=== PATIENT | male | born 1935 | race African-American/Black ===

== ENCOUNTER → 2018-11-01 | Day surgery (SDC) | payer OTHER ==
[2018-10-31 10:47] LABS: BASOPHILS % 0.6 % (0.0-1.0); EOSINOPHILS # (AUTO) 0.3 (0.0-0.4); EOSINOPHILS % 3.9 % (0.0-6.0); HEMATOCRIT 39.9 % (38.2-49.6); HEMOGLOBIN 12.2 g/dL (14.0-18.0); LYMPHOCYTES # (AUTO) 1.4 (1.0-3.2); LYMPHOCYTES % 22.2 % (18.0-39.1); MEAN CORPUSCULAR HEMOGLOBIN 23.8 pg (28-32); MEAN CORPUSCULAR HGB CONC 30.6 g/dL (31-35); MEAN CORPUSCULAR VOLUME 77.9 fL (81-99); MONOCYTES # (AUTO) 0.5 (0.2-0.8); NEUTROPHILS # (AUTO) 4.2 (2.1-6.9); NEUTROPHILS % 64.8 % (38.7-80.0); PLATELET COUNT 176 x10e3/uL (140-360); RED BLOOD COUNT 5.12 x10e6/uL (4.3-5.7); RED CELL DISTRIBUTION WIDTH 15.6 % (11.7-14.4)
[2018-10-31 11:05] LABS: ALBUMIN 3.5 g/dL (3.5-5.0); ALBUMIN/GLOBULIN RATIO 1.4 (0.8-2.0); CALCIUM 9.4 mg/dL (8.4-10.2); CREATININE, SERUM 1.46 mg/dL (0.72-1.25)
--- NOTE | 2018-10-31 11:05 | Diagnostic Imaging Report ---
EXAMINATION: PA and lateral views of the chest. COMPARISON: None CLINICAL HISTORY: Preoperative study for port placement DISCUSSION: The lungs are well-inflated. No focal airspace consolidation, pleural effusion, or pneumothorax. Tortuous thoracic aorta with atherosclerotic calcification. Normal heart size. No overt pulmonary edema. No acute osseous abnormality. IMPRESSION: No acute cardiopulmonary abnormalities. Signed by: Dr. Pierce Saldivar M.D. on 10/31/2018 11:02 AM
[~2018-11-01] MED LIST: ADVAIR 250/50; ALLEGRA ALLERG180 MG PO; BESIVANCE5 ML OS; BUPIVACAINE 0.25% 30ML SDV INJ ONE; BUPIVACAINE 0.5%/EPI 30 ML SDV INJ ONE; CLONAZEPAM0.5 MG PO; DEXAMETHASONE SOD PHOS INJ 4 MG/ML VIAL ONE; ENALAPRIL MALE2.5 MG; EPHEDRINE SULFATE INJ 50 MG/10 ML SYR ONE; FENTANYL CITRATE/PF 100MCG/2 ML INJ ONE; FLOMAX0.4 MG PO; FUROSEMIDE40 MG PO; HEPARIN SOD (PORCINE) 5,000 UNIT/ML VIAL ONE; ILEVRO OS; INCRUSE ELLIPTA INH; IOPAMIDOL 610MG/1ML 300 MG/ML VIAL IV ONE; JANUMET 50-1,01 EACH; KLOR-CON M2020 MEQ PO; KLOR-CON20 MEQ; LABETALOL HCL 20 MG/4 ML SYRINGE IV ONE; LABETALOL HCL200 MG; LIDOCAINE HCL 1% LOCAL INJ 20 ML VIAL ONE; LIDOCAINE HCL 2% LOCAL INJ 5 ML SDV VIAL INJ ONE; LOSARTAN POTASS25 MG PO; MECLIZINE HCL25 MG PO; MONTELUKAST SOD10 MG PO; ONDANSETRON HCL INJ 2MG/ML 2ML 2 MG/ML VIAL ONE; ONGLYZA5 MG PO; PANTOPRAZOLE SO40 MG PO; PLAVIX75 MG PO; PREDNISONE10 MG PO; PROPOFOL IV EMULSION 10 MG/ML 20 ML VIAL ONE; PROVENTIL HFA6.7 GM INH; SEVOFLURANE INHAL SOLN 250 ML PEN BTL ONE; SIMVASTATIN10 MG PO; SODIUM CHLORIDE 0.9% 500ML 500 ML ONE; SPIRIVA18 MCG INH; SYMBICORT 16010.2 GM INH; TORSEMIDE10 MG; ULTRAM50 MG PO; ZYTIGA250 MG PO
--- OUTSIDE RECORDS SUMMARY | 2018-11-01 05:31 | XMS REPORT | CCD ---
Author Author Auto Generated Organization [facility] Address Unknown Phone Unavailable Care Team Providers [employer] Helper Name Role Phone Diaz Elias RP Allergies, Adverse Reactions, Alerts Substance Reaction Status NKDA Active
--- OUTSIDE RECORDS SUMMARY | 2018-11-01 05:31 | XMS REPORT | Continuity of Care Document ---
Author Author [facility] Interface Address Unknown Phone Unavailable Problems Problem Status Onset Date Classification Date Reported Comments Source DYSPNEA Active 07/31/2018 [facility] Discharge Diagnosis: Acute exacerbation of COPD with asthma 12/24/2016 12/27/2016 [facility] SOB Active 12/24/2016 [facility] Discharge Diagnosis: Asthma 12/04/2016 12/07/2016 [facility] Discharge Diagnosis: Bronchitis 12/04/2016 12/07/2016 [facility] JARED DEVINE MD #[phone] FAX#[phone] Active 01/26/2016 [facility] PULMONARY NODULE Active 08/02/2015 [facility] Discharge Diagnosis: Benign paroxysmal positional vertigo 02/24/2015 02/27/2015 [facility] 1.[address] IN MEENU Active 12/28/2014 [facility] DYSPNEA 786.09 Active 06/26/2014 [facility] ABDOMINAL PAIN Active 05/22/2014 [facility] CHEST PAIN Active 05/22/2014 [facility] Chronic anemia<sup>1</sup> Active 02/03/2013 Problem 12/27/2016 Data migrated from [employer] on 02/20/15. [facility] Malignant tumor of sigmoid colon<sup>3</sup> Active 02/03/2013 Problem 12/27/2016 Data migrated from [employer] on 02/20/15. [place],[facility] Polyp of large intestine<sup>5</sup> Active 02/03/2013 Problem 12/27/2016 Data migrated from [employer] on 02/20/15. [facility] 153.3=CANCER OF COLON, SIGMOID Active 01/21/2013 [facility] UNK Active 01/21/2013 [facility] [place] - Myocardial infarction<sup>2</sup> Resolved 09/24/1987 Problem 01/01/2015 2 Approx [facility] [place] - Myocardial infarction<sup>4</sup> Resolved 09/24/1987 Problem 12/27/2016 Approx [facility] Inflammatory polyps of colon<sup>1</sup> Active Problem 01/01/2015 1Signmoid [facility] Right sided weakness<sup>3</sup> Resolved Problem 01/01/2015 3r/t stroke [facility] Stroke<sup>4</sup> Resolved Problem 01/01/2015 4right leg affected. [facility] Asthma Active Problem 12/27/2016 [facility] Benign hypertension Active Problem 12/27/2016 [facility] Cancer of prostate Resolved Problem 12/27/2016 [facility] Diabetes Active Problem 12/27/2016 [facility] Inflammatory polyps of colon<sup>2</sup> Active Problem 12/27/2016 Signmoid [facility] Right sided weakness<sup>6</sup> Resolved Problem 12/27/2016 r/t stroke [facility] Sleep apnea Active Problem 12/27/2016 [facility] SOB - Shortness of breath Active Problem 12/27/2016 [facility] Stroke<sup>7</sup> Resolved Problem 12/27/2016 right leg affected. [facility] CHEST PAIN NOS Active [facility] MAL VERNON SIGMOID COLON Active [facility] DIZZINESS Active [facility] SOLITARY PULMONARY NODULE Active [facility] DIZZINESS Active [facility] Medications Medication Details Route Status Patient Instructions Ordering Provider Order Date Source predniSONE 20 mg oral tablet 40 mg=2 tab, PO, Daily, Take 2 tablets for 40 mg dose, X 5 day, # 10 tab, 0 Refill(s) Active 12/24/2016 [facility] Albuterol 0.833 MG/ML / Ipratropium [place] 0.167 MG/ML Inhalant Solution 9 mL, Route: NEB, Drug Form: SOLN, Dosing Weight 110.455, kg, ONCE, STAT, Start date: 12/24/16 6:05:00 CDT, Stop date: 12/24/16 6:05:00 CDTNotes: (Same as: Duoneb) Inactive 12/24/2016 [facility] methylPREDNISolone SODium SUCCinate 125 mg, Route: IVP, ONCE, Dosing Weight 110.455, kg, Priority: STAT, Start date: 12/24/16 6:05:00 CDT, Stop date: 12/24/16 6:05:00 CDT Inactive 12/24/2016 [facility] Saline Flush 0.9% 10 mL, Route: IVP, Drug Form: INJ, Dosing Weight 110.455, kg, PRN, PRN Line Flush, Start date: 12/24/16 6:05:00 CDT, Duration: 30 day, Stop date: 01/23/17 6:04:00 CDTNotes: (Same as: BD Posiflush) Inactive 12/24/2016 [facility] Prednisone 50 MG Oral Tablet 50 mg=1 tab, PO, Daily, X 5 day, # 5 tab, 0 Refill(s) Active 12/04/2016 [facility] azithromycin 500 mg oral tablet 500 mg=1 tab, PO, Daily, X 5 day, # 5 tab, 0 Refill(s) Active 12/04/2016 [facility] azithromycin 500 mg oral tablet 500 mg, Route: PO, Drug form: TAB, ONCE, Dosing Weight 110.455, kg, Start date: 12/04/16 11:31:00 CDT, Stop date: 12/04/16 11:31:00 CDT Inactive 12/04/2016 [facility] methylPREDNISolone SODium SUCCinate 125 mg, 2 mL, Route: IVP, Drug form: INJ, ONCE, Dosing Weight 110.455, kg, Priority: STAT, Start date: 12/04/16 10:31:00 CDT, Stop date: 12/04/16 10:31:00 CDTNotes: (Same as:Solu-MEDROL, A-Methapred) Inactive 12/04/2016 [facility] Magnesium Sulfate 2 gm, 50 mL, Route: IVPB, Drug form: INJ, ONCE, Dosing Weight 110.455, kg, Priority: STAT, Start date: 12/04/16 10:31:00 CDT, Stop date: 12/04/16 10:31:00 CDTNotes: WASTE: F/P - Sink; E - Municipal Trash Bin Inactive 12/04/2016 [facility] Albuterol 0.833 MG/ML / Ipratropium [place] 0.167 MG/ML Inhalant Solution 9 mL, Route: NEB, Drug Form: SOLN, Dosing Weight 110.455, kg, ONCE, STAT, Start date: 12/04/16 10:31:00 CDT, Stop date: 12/04/16 10:31:00 CDTNotes: (Same as: Duoneb) Inactive 12/04/2016 [facility] Saline Flush 0.9% 10 mL, Route: IVP, Drug Form: INJ, Dosing Weight 110.455, kg, PRN, PRN Line Flush, Start date: 12/04/16 10:31:00 CDT, Duration: 30 day, Stop date: 01/03/17 10:30:00 CDTNotes: preservative free. Inactive 12/04/2016 [facility] Albuterol 0.833 MG/ML / Ipratropium [place] 0.167 MG/ML Inhalant Solution 9 mL, Route: NEB, Dosing Weight 110.455, kg, ONCE, STAT, Start date: 12/04/16 10:28:00 CDT, Stop date: 12/04/16 10:28:00 CDT Inactive 12/04/2016 [facility] Meclizine Hydrochloride 25 MG Oral Tablet [Antivert] 25 mg=1 tab, PO, TID, PRN Dizziness, X 10 day, # 30 tab, 0 Refill(s) Active 02/24/2015 [facility] Antivert 50 mg, 2 tab, Route: PO, Drug form: TAB, ONCE, Dosing Weight 109.091, kg, Priority: STAT, Start date: 02/24/15 10:27:00, Stop date: 02/24/15 10:27:00Notes: (Same as: Antivert) Inactive 02/24/2015 [facility] Metoclopramide 10 mg, 2 mL, Route: IVP, Drug form: INJ, ONCE, Dosing Weight 109.091, kg, Priority: STAT, Start date: 02/24/15 10:27:00, Stop date: 02/24/15 10:27:00Notes: (Same as: Reglan) Inactive 02/24/2015 [facility] Diphenhydramine 25 mg, 0.5 mL, Route: IVP, Drug form: INJ, ONCE, Dosing Weight 109.091, kg, Priority: STAT, Start date: 02/24/15 10:27:00, Stop date: 02/24/15 10:27:00Notes: (Same as: Benadryl) Inactive 02/24/2015 [facility] Claritin 10 mg, 1 tab, Route: PO, Drug form: TAB, Daily, Start date: 05/23/14 9:00:00, Duration: 30 day, Stop date: 06/21/14 9:00:00Notes: 1 hr before meals (Same as: Claritin) Inactive 05/23/2014 [facility] Glucophage 500 mg, 1 tab, Route: PO, Drug form: TAB, Daily, Start date: 05/23/14 9:00:00, Duration: 30 day, Stop date: 06/21/14 9:00:00Notes: (Same as: Glucophage) Take with meal Inactive 05/23/2014 [facility] Glipizide 2.5 MG / Metformin hydrochloride 500 MG Oral Tablet 1 tab, Route: PO, Dosing Weight 110, kg, Daily, Start date: 05/23/14 9:00:00, Duration: 30 day, Stop date: 06/21/14 9:00:00 No Longer Active 05/23/2014 [facility] Glucotrol 2.5 mg, 0.5 tab, Route: PO, Drug form: TAB, Daily, Start date: 05/23/14 9:00:00, Duration: 30 day, Stop date: 06/21/14 9:00:00Notes: (Same as: Glucotrol) 30 min before meals. Inactive 05/23/2014 [facility] tamsulosin 0.4 mg, 1 cap, Route: PO, Drug form: CAP, Daily, Dosing Weight 110, kg, Start date: 05/23/14 9:00:00, Duration: 30 day, Stop date: 06/21/14 9:00:00Notes: (Same As: Flomax) "Do Not Crush" Inactive 05/23/2014 [facility] Advair Diskus 250 mcg-50 mcg inhalation powder 1 puff, Route: INHALATION, Drug Form: AERO, Dosing Weight 110, kg, BID, Start date: 05/23/14 9:00:00, Duration: 30 day, Stop date: 06/21/14 17:00:00 No Longer Active 05/23/2014 [facility] Genevieve 180 mg, Route: PO, Drug form: TAB, Daily, Dosing Weight 110, kg, Start date: 05/23/14 9:00:00, Duration: 30 day, Stop date: 06/21/14 9:00:00 No Longer Active 05/23/2014 [facility] Plavix 75 mg, 1 tab, Route: PO, Drug form: TAB, Daily, Dosing Weight 110, kg, Start date: 05/23/14 9:00:00, Duration: 30 day, Stop date: 06/21/14 9:00:00Notes: (Same As: Plavix) Inactive 05/23/2014 [facility] budesonide-formoterol 160 mcg-4.5 mcg/inh inhalation aerosol with adapter 2 inhalation, Route: INHALATION, Drug Form: AERO/A, Q12H, Start date: 05/22/14 21:00:00, Duration: 30 day, Stop date: 06/21/14 9:00:00Notes: (Same as: Symbicort) No Longer Active 05/23/2014 [facility] Enoxaparin 30 mg, 0.3 mL, Route: SUB-Q, Drug form: INJ, [id number], Dosing Weight 110, kg, Start date: 05/22/14 21:00:00, Duration: 30 day, Stop date: 06/20/14 21:00:00Notes: (Same as: Lovenox) No Longer Active 05/23/2014 [facility] Simvastatin 10 mg, 1 tab, Route: PO, Drug form: TAB, Bedtime, Dosing Weight 110, kg, Start date: 05/22/14 21:00:00, Duration: 30 day, Stop date: 06/20/14 21:00:00Notes: (Same as: Zocor) No Longer Active 05/23/2014 [facility] Saline Flush 0.9% 5 ml, Route: IVP, Drug Form: INJ, Dosing Weight 110, kg, Q12H, Start date: 05/22/14 21:00:00, Duration: 30 day, Stop date: 06/21/14 9:00:00Notes: (Same as: BD Posiflush) No Longer Active 05/23/2014 [facility] Restoril 7.5 mg, 1 cap, Route: PO, Drug form: CAP, Bedtime, PRN Insomnia, Start date: 05/22/14 18:33:00, Duration: 30 day, Stop date: 06/21/14 18:32:00Notes: (Same As: Restoril) No Longer Active 05/22/2014 [facility] Tylenol 650 mg, 2 tab, Route: PO, Drug form: TAB, Q4H, Dosing Weight 110, kg, PRN Pain Score 1-3, Start date: 05/22/14 18:29:00, Duration: 30 day, Stop date: 06/21/14 18:28:00Notes: Do not exceed 4 gm/day. (Same as: Tylenol) No Longer Active 05/22/2014 [facility] Ambien 5 mg, Route: PO, Bedtime, Dosing Weight 110, kg, PRN Insomnia, Start date: 05/22/14 18:29:00, Duration: 30 day, Stop date: 06/21/14 18:28:00 Inactive 05/22/2014 [facility] NS 1,000 mL 1,000 mL, Rate: 100 ml/hr, Infuse over: 10 hr, Route: IV, Dosing Weight 110 kg, Total Volume: 1,000, Start date: 05/22/14 18:26:00, Duration: 30 day, Stop date: 06/21/14 18:25:00 No Longer Active 05/22/2014 [facility] Saline Flush 0.9% 5 ml, Route: IVP, Drug Form: INJ, Dosing Weight 110, kg, PRN, PRN Line Flush, Start date: 05/22/14 15:27:00, Duration: 30 day, Stop date: 06/21/14 15:26:00Notes: (Same as: BD Posiflush) No Longer Active 05/22/2014 [facility] Nitroglycerin 0.4 mg, 1 tab, Route: SL, Drug form: TAB, Q5Min, Dosing Weight 110, kg, PRN Chest Pain, Start date: 05/22/14 15:27:00, Duration: 3 doses or times, Stop date: Limited # of timesNotes: (Same as:Nitroqu ick, Nitrostat) "Do Not Crush" Sublingual tablet No Longer Active 05/22/2014 [facility] aspirin 325 mg tablet 325 mg, 1 tab, Route: PO, Drug form: TAB, ONCE, Dosing Weight 110, kg, Start date: 05/22/14 15:27:00, Stop date: 05/22/14 15:27:00Notes: Take with food. Inactive 05/22/2014 [facility] Sodium Chloride 0.154 MEQ/ML Injectable Solution 1,000 mL, 1,000 ml/hr, Infuse Over: 1 hr, Route: IV, ONCE, Priority: STAT, Dosing Weight 110 kg, Start date: 05/22/14 13:31:00, Duration: 1 doses or times, Stop date: 05/22/14 13:31:00 Inactive 05/22/2014 [facility] Aspirin / Calcium Carbonate 325 mg, Route: PO, Drug form: TAB, ONCE, Dosing Weight 110, kg, Priority: STAT, Start date: 05/22/14 13:30:00, Stop date: 05/22/14 13:30:00 Inactive 05/22/2014 [facility] Morphine 4 mg, Route: IVP, Drug form: INJ, ONCE, Dosing Weight 110, kg, Priority: STAT, Start date: 05/22/14 13:30:00, Stop date: 05/22/14 13:30:00 Inactive 05/22/2014 [facility] Allergies, Adverse Reactions, Alerts Substance Category Reaction Severity Reaction type Status Date Reported Comments Source Immunizations Immunization Date Given Site Status Last Updated Comments Source Results Order Name Results Value Reference Range Date Interpretation Comments Source Chest 2 views DX Chest 2 views DX Chest 2 views DX 07/31/2018 9:40 AM [employer] Ordering Physician: Claudy Couch MD CLINICAL HISTORY: - dyspnea; TECHNIQUE: PA and lateral upright views of the chest were obtained. COMPARISON: December 24, 2016. FINDINGS: No focal consolidation or pleural effusion is seen. No radiographically detectable pneumothorax is present. The heart is mildly enlarged with central vascular congestion. No acute osseous abnormality is evident. IMPRESSION: 1. Cardiac megaly with central vascular congestion. SL: [id number] 07/31/2018 - - Read by: Alan Armenat MD Dictated Date/time: 07/31/18 14:35 Electronically Signed by: Alan Armenta MD 07/31/18 14:36 FINAL REPORT [facility] CHEM PANEL Lactic Acid Lvl 1.5 mMol/L 0.5 - 2.2 12/24/2016 [facility] CARDIAC ENZYMES Troponin-I null 0.00 - 0.40 12/24/2016 [facility] CHEM PANEL Lactic Acid Lvl 2.3 mMol/L 0.5 - 2.2 12/24/2016 [facility] ELECTROLYTES AGAP 14.3 meq/L 10.0 - 20.0 12/24/2016 [facility] ELECTROLYTES Potassium Lvl 3.3 meq/L 3.5 - 5.1 12/24/2016 [facility] ELECTROLYTES Creatinine Lvl 1.71 mg/dL 0.50 - 1.40 12/24/2016 [facility] ELECTROLYTES Sodium Lvl 144 meq/L 135 - 145 12/24/2016 [facility] ELECTROLYTES Chloride Lvl 104 meq/L 95 - 109 12/24/2016 [facility] ELECTROLYTES CO2 29 meq/L 24 - 32 12/24/2016 [facility] ELECTROLYTES Glucose Lvl 123 mg/dL 70 - 99 12/24/2016 [facility] ELECTROLYTES BUN 29 mg/dL 7 - 22 12/24/2016 [facility] ELECTROLYTES eGFR 43 mL/min/1.73m2 12/24/2016 Result Comment: The eGFR is calculated using the CKD-EPI formula. In most young, healthy individuals the eGFR will be >90 mL/min/1.73m2. The eGFR declines with age. An eGFR of 60-89 may be normal in some populations, particularly the elderly, for whom the CKD-EPI formula has not been extensively validated. Use of the eGFR is not recommended in the following populations: Individuals with unstable creatinine concentrations, including patients and those with serious co-morbid conditions. Patients with extremes in muscle mass or diet. The data above are obtained from the National Kidney Disease Education Program (NKDEP) which additionally recommends that when the eGFR is used in patients with extremes of body mass index for purposes of drug dosing, the eGFR should be multiplied by the estimated BMI. [facility] ELECTROLYTES Calcium Lvl 9.1 mg/dL 8.5 - 10.5 12/24/2016 [facility] HEMATOLOGY Microcyte 1+ *ABN* (12/24/16 6:10 AM) None Seen 12/24/2016 [facility] HEMATOLOGY Monocytes # 0.7 K/CMM 0.0 - 0.8 12/24/2016 [facility] HEMATOLOGY Eosinophils # 0.5 K/CMM 0.0 - 0.5 12/24/2016 [facility] HEMATOLOGY Basophils # 0.1 K/CMM 0.0 - 0.2 12/24/2016 [facility] Lymphocytes 29.4 % 20.0 - 40.0 12/24/2016 [facility] Monocytes 7.4 % 2.0 - 12.0 12/24/2016 [facility] Eosinophils 5.2 % 0.0 - 4.0 12/24/2016 [facility] Basophils 0.6 % 0.0 - 1.0 12/24/2016 [facility] Segs-Bands # 5.3 K/CMM 1.5 - 8.1 12/24/2016 [facility] Lymphocytes # 2.7 K/CMM 1.0 - 5.5 12/24/2016 [facility] Segs 57.4 % 45.0 - 75.0 12/24/2016 [facility] MPV 9.3 fL 7.4 - 10.4 12/24/2016 [facility] WBC X 10x3 9.2 K/CMM 3.7 - 10.4 12/24/2016 [facility] RBC X 10x6 4.77 M/CMM 4.70 - 6.10 12/24/2016 [facility] Hgb 11.6 g/dL 14.0 - 18.0 12/24/2016 [facility] Hct 36.2 % 42.0 - 54.0 12/24/2016 [facility] MCH 24.4 pg 27.0 - 31.0 12/24/2016 [facility] MCHC 32.2 g/dL 32.0 - 36.0 12/24/2016 [facility] RDW 14.5 % 11.5 - 14.5 12/24/2016 [facility] Platelet 157 K/CMM 133 - 450 12/24/2016 [facility] MCV 75.9 fL 80.0 - 94.0 12/24/2016 [facility] Chest 1view DX Chest 1view DX EXAM: Chest 1view DX DATE: 12/24/2016 6:05 AM CDT INDICATION: Dyspnea - dyspnea, hx of copd, crackles at bases, wheezing throughout COMPARISON: 12/04/2016. IMPRESSION: Stable prominent cardiac silhouette and mediastinum. Tortuous atherosclerotic thoracic aorta. The lungs are mildly hyperexpanded. No focal consolidation, significant pleural effusion or pneumothorax. SL: [id number] 12/24/2016 - - Read by: Aristides Levin MD Dictated Date/time: 12/24/16 06:24 Electronically Signed by: Aristides Levin MD 12/24/16 06:24 FINAL REPORT [facility] CARDIAC ENZYMES CK-MB INDEX null 0.0 - 2.5 12/04/2016 [facility] CARDIAC ENZYMES CK MB null 0.5 - 3.6 12/04/2016 [facility] CARDIAC ENZYMES Troponin-I null 0.00 - 0.40 12/04/2016 [facility] CARDIAC ENZYMES Total CK 69 unit/L 12 - 191 [facility]04[facility] Phosphorus 2.5 mg/dL 2.5 - 4.5 12/04/2016 [facility] CHEM PANEL Magnesium Lvl 1.6 mg/dL 1.8 - 2.4 12/04/2016 [facility] CHEM PANEL eGFR 44 mL/min/1.73m2 12/04/2016 Result Comment: The eGFR is calculated using the CKD-EPI formula. In most young, healthy individuals the eGFR will be >90 mL/min/1.73m2. The eGFR declines with age. An eGFR of 60-89 may be normal in some populations, particularly the elderly, for whom the CKD-EPI formula has not been extensively validated. Use of the eGFR is not recommended in the following populations: Individuals with unstable creatinine concentrations, including patients and those with serious co-morbid conditions. Patients with extremes in muscle mass or diet. The data above are obtained from the National Kidney Disease Education Program (NKDEP) which additionally recommends that when the eGFR is used in patients with extremes of body mass index for purposes of drug dosing, the eGFR should be multiplied by the estimated BMI. [place] CHEM PANEL Glucose Lvl 126 mg/dL 70 - 99 12/04/2016 [facility] BUN 25 mg/dL 7 - 22 12/04/2016 [facility] A/G Ratio 0.9 0.7 - 1.6 12/04/2016 [place] CHEM PANEL Globulin 3.8 g/dL 2.7 - 4.2 12/04/2016 [place] CHEM PANEL B/C Ratio 15 6 - 25 12/04/2016 [facility] AGAP 13.5 meq/L 10.0 - 20.0 12/04/2016 [facility] CHEM PANEL Bili Total 0.7 mg/dL 0.2 - 1.3 12/04/2016 [facility] CHEM PANEL ASPARTATE TRANSAMINASE 8 unit/L 0 - 37 12/04/2016 [facility] CHEM PANEL CO2 30 meq/L 24 - 32 12/04/2016 [facility] CHEM PANEL Total Protein 7.1 g/dL 6.4 - 8.4 12/04/2016 [facility] CHEM PANEL Calcium Lvl 9.0 mg/dL 8.5 - 10.5 12/04/2016 [facility] CHEM PANEL Potassium Lvl 3.5 meq/L 3.5 - 5.1 12/04/2016 [facility] CHEM PANEL Chloride Lvl 104 meq/L 95 - 109 12/04/2016 [facility] CHEM PANEL Creatinine Lvl 1.69 mg/dL 0.50 - 1.40 12/04/2016 [facility] CHEM PANEL Sodium Lvl 144 meq/L 135 - 145 12/04/2016 [facility] CHEM PANEL Albumin Lvl 3.3 g/dL 3.5 - 5.0 12/04/2016 [facility] CHEM PANEL Alk Phos 84 unit/L 39 - 136 12/04/2016 [facility] CHEM PANEL ALANINE AMINOTRANSFERASE 17 unit/L 0 - 65 12/04/2016 [facility] HEMATOLOGY Basophils 0.5 % 0.0 - 1.0 12/04/2016 [facility] HEMATOLOGY Segs-Bands # 6.3 K/CMM 1.5 - 8.1 12/04/2016 [facility] HEMATOLOGY Microcyte 1+ *ABN* (12/04/16 10:50 AM) None Seen 12/04/2016 [facility] HEMATOLOGY Eosinophils # 0.8 K/CMM 0.0 - 0.5 12/04/2016 [facility] HEMATOLOGY Monocytes # 0.5 K/CMM 0.0 - 0.8 12/04/2016 [facility] HEMATOLOGY Lymphocytes # 2.0 K/CMM 1.0 - 5.5 12/04/2016 [facility] HEMATOLOGY Eosinophils 8.1 % 0.0 - 4.0 12/04/2016 [facility] HEMATOLOGY Lymphocytes 20.9 % 20.0 - 40.0 12/04/2016 [facility] HEMATOLOGY Monocytes 5.6 % 2.0 - 12.0 12/04/2016 [facility] Segs 64.9 % 45.0 - 75.0 12/04/2016 [facility] MPV 9.5 fL 7.4 - 10.4 12/04/2016 [facility] RDW 14.2 % 11.5 - 14.5 12/04/2016 [facility] Platelet 146 K/CMM 133 - 450 12/04/2016 [facility] MCH 24.2 pg 27.0 - 31.0 12/04/2016 [facility] MCHC 32.1 g/dL 32.0 - 36.0 12/04/2016 [facility] MCV 75.4 fL 80.0 - 94.0 12/04/2016 [facility] Hgb 11.7 g/dL 14.0 - 18.0 12/04/2016 [facility] Hct 36.4 % 42.0 - 54.0 12/04/2016 [facility] WBC X 10x3 9.8 K/CMM 3.7 - 10.4 12/04/2016 [facility] RBC X 10x6 4.82 M/CMM 4.70 - 6.10 12/04/2016 [facility] INR 0.91 0.85 - 1.17 12/04/2016 [facility] PROTIME 12.5 s 12.0 - 14.7 12/04/2016 [facility] aPTT 27.0 s 22.9 - 35.8 12/04/2016 [facility] Chest 1view DX Chest 1view DX Patient Name: PK WOOD : 1935; Age: 81 years y/o Male MR: [id number] Study: Chest 1view DX 12/04/2016 10:31 AM CDT Ordering Physician: Clinical Indication: Dyspnea; Comparison: 02/24/2015 1 view chest Poor inspiration, low lung volumes. The heart size is normal. Pulmonary vasculature appears mildly engorged and subtly indistinct, although this may be accentuated by poor inspiration. Correlate clinically for congestive heart failure or volume overload. There is no pleural effusion or pneumothorax. No acute osseous abnormalities. IMPRESSION: Poor inspiration, low lung volumes, which accentuates the pulmonary vascular markings. Correlate clinically for superimposed pulmonary vasculature congestion, congestive heart failure or volume overload. No other acute infiltrate or pleural effusion. SL: [id number] 12/04/2016 - - Read by: Prem Coates MD Dictated Date/time: 12/04/16 11:12 Electronically Signed by: Prem Coates MD 12/04/16 11:14 FINAL REPORT [facility] Chest wo contrast CT Chest wo contrast CT Chest wo contrast CT CLINICAL HX: pulmonary nodule. COMPARISON: CT chest 12/30/2014, 08/06/2015 TECHNIQUE: Contiguous transaxial images of the chest were performed without IV contrast. Reformats are available in sagittal and coronal projections. CT CHEST: LOWER NECK: Symmetric appearance of thyroid gland without focal abnormality. LUNGS AND AIRWAYS: 6 mm nodule in the right upper lobe and 9 mm nodule in the right lower lobe are unchanged from previous study. An 11 mm x 8 mm new nodule was noted on previous CT of 08/06/2015. This nodule demonstrates mild interval increase in size and now measures 13 mm x 8 mm. The trachea and the proximal bronchi are patent. CARDIOVASCULAR AND MEDIASTINUM: The cardiac size is normal. The descending aorta is at upper range of normal approximately 3.9 cm in the greatest diameter. There is calcific plaque noted at the aortic arch. No evidence for aneurysm. Evaluation is limited due to lack of IV contrast but no significant mediastinal or hilar lymphadenopathy is evident. SOFT TISSUE AND BONES: Mild thoracic spondylosis and kyphosis.. No significant bony abnormality is noted. ESOPHAGUS AND UPPER ABDOMEN: The esophagus demonstrates normal morphology. Limited images of the upper abdomen and reveal hypoplasia versus postsurgical change left hepatic lobe. Appearance is unchanged from previous CT study of 08/06/2015. IMPRESSION: The 11 mm new nodule noted on previous CT of 08/06/2015 now measures approximately 13 mm. Further evaluation with PET scan or biopsy is recommended, if not previously performed to exclude malignancy. 6 mm nodule in right upper lobe and 9 mm nodule right lower lobe are stable from previous 2 CT scans. SL: [id number] 01/28/2016 - - Read by: Davis Tapia MD Dictated Date/time: 01/28/16 15:45 Electronically Signed by: Davis Tapia MD 01/28/16 15:58 FINAL REPORT [facility] Chest wo contrast CT Chest wo contrast CT EXAM: CT chest without contrast. CLINICAL INFORMATION: pulmonary nodule. COMPARISON: CT chest of 12/30/2014 and 06/30/2014. TECHNIQUE: Axial images obtained of the thorax without IV contrast. FINDINGS: Stable heart size. No pericardial effusion. Stable small about 6.0 mm posterior right upper lobe pulmonary nodule is present. Stable posterior right lung base pulmonary nodule measuring about 9.0 mm. New about 1.1 cm anterior right lower lobe pulmonary nodule is present. No focal consolidation, significant pleural effusion or pneumothorax. Small hiatal hernia is present. 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 Abundance of stool within the colon. IMPRESSION: 1. New about 1.1 cm anterior right lower lobe pulmonary nodule is present. Stable posterior right lung base and right upper lobe pulmonary nodules as above. Neoplasm must be excluded. Dedicated PET/CT recommended for further evaluation. 2. Small hiatal hernia. 3. 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 SL: 12 08/06/2015 - - Read by: Aristides Levin MD Dictated Date/time: 08/07/15 13:49 Electronically Signed by: Aristides Levin MD 08/07/15 13:59 FINAL REPORT [facility] CARDIAC ENZYMES Troponin-I null 0.00 - 0.40 02/24/2015 [facility] CARDIAC ENZYMES Total CK 83 unit/L 12 - 191 02/24/2015 [facility] CARDIAC ENZYMES CK MB Index 0.8 0.0 - 2.5 02/24/2015 [facility] CARDIAC ENZYMES CK MB 0.7 ng/mL 0.5 - 3.6 02/24/2015 [facility] CHEM PANEL Calcium Lvl 9.0 mg/dL 8.5 - 10.5 02/24/2015 [facility] CHEM PANEL Chloride Lvl 101 meq/L 95 - 109 02/24/2015 [facility] CHEM PANEL Potassium Lvl 3.5 meq/L 3.5 - 5.1 02/24/2015 [facility] CHEM PANEL Sodium Lvl 138 meq/L 135 - 145 02/24/2015 [facility] CHEM PANEL eGFR 34 mL/min/1.73m2 02/24/2015 1Result Comment: The eGFR is calculated using the CKD-EPI formula. In most young, healthy individuals the eGFR will be >90 mL/min/1.73m2. The eGFR declines with age. An eGFR of 60-89 may be normal in some populations, particularly the elderly, for whom the CKD-EPI formula has not been extensively validated. Use of the eGFR is not recommended in the following populations: Individuals with unstable creatinine concentrations, including patients and those with serious co-morbid conditions. Patients with extremes in muscle mass or diet. The data above are obtained from the National Kidney Disease Education Program (NKDEP) which additionally recommends that when the eGFR is used in patients with extremes of body mass index for purposes of drug dosing, the eGFR should be multiplied by the estimated BMI. [facility] CHEM PANEL Total Protein 7.6 g/dL 6.4 - 8.4 02/24/2015 [facility] CHEM PANEL CO2 32 meq/L 24 - 32 02/24/2015 [facility] CHEM PANEL Creatinine Lvl 2.1 mg/dL 0.5 - 1.4 02/24/2015 [facility] CHEM PANEL BUN 32 mg/dL 7 - 22 02/24/2015 [facility] CHEM PANEL Glucose Lvl 122 mg/dL 70 - 99 02/24/2015 2Interpretive Data: Adult reference range values reflect the clinical guidelines of the [place] [employer]. [facility] CHEM PANEL Alk Phos 68 unit/L 39 - 136 02/24/2015 [facility] CHEM PANEL AST 9 unit/L 0 - 37 02/24/2015 [facility] CHEM PANEL Bili Total 0.5 mg/dL 0.2 - 1.3 02/24/2015 [facility] CHEM PANEL ALT 18 unit/L 0 - 65 02/24/2015 [facility] CHEM PANEL Albumin Lvl 3.5 g/dL 3.5 - 5.0 02/24/2015 [facility] CHEM PANEL B/C Ratio 15 6 - 25 02/24/2015 [facility] CHEM PANEL A/G Ratio 0.9 0.7 - 1.6 02/24/2015 [facility] CHEM PANEL Globulin 4.1 g/dL 2.0 - 4.0 02/24/2015 [facility] CHEM PANEL AGAP 8.5 meq/L 10.0 - 20.0 02/24/2015 [facility] HEMATOLOGY PTT 30.0 s 22.9 - 35.8 02/24/2015 4Interpretive Data: Heparin Therapeutic Range: 57 - 92 Seconds [facility] HEMATOLOGY INR 0.99 0.85 - 1.17 02/24/2015 3Interpretive Data: RECOMMENDED RANGES FOR PROTIME INR: 2.0-3.0 for most medical and surgical thromboembolic states. 2.5-3.5 for artificial heart valves and recurrent embolism. INR SHOULD BE USED ONLY FOR PATIENTS ON STABLE ANTICOAGULANT THERAPY. [facility] HEMATOLOGY PT 13.1 s 12.0 - 14.7 02/24/[address] [facility] Segs 64.4 % 45.0 - 75.0 02/24/[address] [facility] Lymphocytes # 1.4 K/CMM 1.0 - 5.5 02/24/[address] [facility] Segs-Bands # 4.1 K/CMM 1.5 - 8.1 02/24/[address] [facility] Eosinophils # 0.3 K/CMM 0.0 - 0.5 02/24/[address] [facility] Monocytes # 0.5 K/CMM 0.0 - 0.8 02/24/[address] [facility] Monocytes 8.4 % 2.0 - 12.0 02/24/[address] [facility] Lymphocytes 21.8 % 20.0 - 40.0 02/24/[address] [facility] Eosinophils 4.6 % 0.0 - 4.0 02/24/[address] [facility] Basophils 0.8 % 0.0 - 1.0 02/24/[address] [facility] Microcyte 1+ *ABN* (02/24/15 10:29 AM) None Seen 02/24/[address] [facility] Platelet 160 K/CMM 133 - 450 02/24/[address] [facility] MPV 9.3 fL 7.4 - 10.4 02/24/[address] [facility] RDW 14.7 % 11.5 - 14.5 02/24/[address] [facility] MCHC 32.1 g/dL 32.0 - 36.0 02/24/[address] [facility] WBC 6.3 K/CMM 3.7 - 10.4 02/24/[address] [facility] RBC 5.15 M/CMM 4.70 - 6.10 02/24/[address] [facility] Hgb 12.5 g/dL 14.0 - 18.0 02/24/[address] [facility] MCH 24.3 pg 27.0 - 31.0 02/24/[address] [facility] MCV 75.8 fL 80.0 - 94.0 02/24/[address] [facility] Hct 39.1 % 42.0 - 54.0 02/24/2015 [facility] Brain wo contrast MRI Brain wo contrast MRI MRI BRAIN WITHOUT CONTRAST INDICATION: Drowsiness COMPARISON: CT brain 02/24/2015 DISCUSSION: Image detail is degraded by motion artifacts, limiting evaluation. There are generalized involutional changes of the brain and mild microangiopathic changes of the white matter. 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 There is no evidence of acute vascular insults, space occupying lesions, hemorrhage, hydrocephalus, midline shift, or extra-axial collections. No cortical based, suprasellar, craniocervical, or bone marrow abnormalities are seen. IMPRESSION: Chronic ischemic and age related changes of the brain. No acute intracranial abnormalities are visualized. SL: 16 02/24/2015 - - Read by: Zeke Khan MD Dictated Date/time: 02/24/15 12:46 Electronically Signed by: Zeke Khan MD 02/24/15 12:49 FINAL REPORT [facility] Chest 1view DX Chest 1view DX PA chest: The aorta is tortuous. The cardiomediastinal silhouette, pulmonary vasculature and fiona are otherwise within normal limits. The lungs and pleural spaces are clear. There is no significant change compared to 05/22/2014. IMPRESSION: No acute radiographic abnormality in the chest. SL:13 02/24/2015 - - Read by: Pierce Craft MD Dictated Date/time: 02/24/15 10:06 Electronically Signed by: Pierce Craft MD 02/24/15 10:07 FINAL REPORT [facility] wo contrast CT Brain wo contrast CT CT Head no Contrast: COMPARISON: No priors CLINICAL HX: Vertigo TECHNIQUE: Contiguous transaxial images of the brain were performed without administration of IV contrast. FINDINGS: There is no evidence for parenchymal bleed, extra-axial collections, intracranial masses or midline shift. No displaced fractures of the calvarium or other significant bony abnormality is noted. There is mild cerebral atrophy. Small focus of decreased attenuation is visualized in the left thalamus of uncertain acuity/chronicity. No acute infarct is evident. The visualized paranasal sinuses and the mastoids are clear. IMPRESSION: Probable ischemic insult of uncertain acuity/chronicity is visualized in the left thalamus. If clinically indicated, further evaluation may be obtained with MRI of brain. SL:13 02/24/2015 - - Read by: Davis Tapia MD Dictated Date/time: 02/24/15 10:14 Electronically Signed by: Davis Tapia MD 02/24/15 10:22 FINAL REPORT [facility] wo contrast CT Chest wo contrast CT EXAM: CT CHEST WITHOUT CONTRAST. CLINICAL INFORMATION: 1.2cm nodule. COMPARISON: CT chest of 06/30/2014. TECHNIQUE: Axial images obtained of the thorax without IV contrast. The lack of IV contrast lowers the sensitivity for diagnostic evaluation. FINDINGS: Small low-density left thyroid lobe nodule is present. Stable heart size. No pericardial effusion. Small nonspecific mediastinal nodes are present. Stable 8.0 mm right lower lobe pulmonary nodule is present. Stable to slightly smaller 7.0 mm subpleural pulmonary nodule in the posterior right upper lobe. No new focal abnormality detected. No for consolidation, significant pleural effusion or pneumothorax. Nonvisualization of the left hepatic lobe may be postsurgical. Small hiatal hernia. Small gallstone is present. Limited evaluation of the known previous enhancing splenic lesion. IMPRESSION: 1. Stable to somewhat improved right lung nodules as above. Close clinical and continual short interval follow-up dedicated CT chest in 6 months over a 2 year interval recommended. 2. Small hiatal hernia. 3. Small gallstone is present. 4. Limited evaluation of the known previous enhancing splenic lesion. SL: 12/30/2014 - - Read by: Aristides Levin MD Dictated Date/time: 12/30/14 14:25 Electronically Signed by: Aristides Levin MD 12/30/14 14:32 FINAL REPORT [facility] Chest w contrast CT Chest w contrast CT EXAM: CT CHEST WITH CONTRAST. CLINICAL INFORMATION: dyspnea. Dizziness. COMPARISON: Chest radiograph of 05/22/2014. TECHNIQUE: Axial images obtained of the thorax with IV contrast. Coronal and sagittal reformats were performed for further evaluation. FINDINGS: Grossly normal thyroid gland. Normal heart size. Small nonspecific mediastinal nodes are present. A 1.1 cm subpleural posterior right upper lobe nodule is present. Another 1.1 cm peripheral right lung base nodule is present. Small gallstones are present. Diffuse fatty liver infiltration. A 1.7 cm enhancing lesion is present within the medial inferior aspect of the spleen. Mild DJD of the spine. IMPRESSION: 1. About 1.1 cm right lung nodules as above. Neoplasm must be excluded. Dedicated PET/CT recommended for further evaluation. 2. A 1.7 cm enhancing lesion within the medial inferior aspect of the spleen. This can also be evaluate on PET CT imaging. 3. Small hiatal hernia. 4. Diffuse fatty liver infiltration. 5. Small gallstones. SL: 12 06/30/2014 - - Read by: Aristides Levin MD Dictated Date/time: 06/30/14 13:05 Electronically Signed by: Aristides Levin MD 06/30/14 13:22 FINAL REPORT [facility] CARDIAC ENZYMES BNP 19 pg/mL <=100 pg/mL 05/23/2014 5Interpretive Data: Elevated results are in line with increasing severity of congestive heart failure. Minor elevations between 100 and 300 may be seen with Myocardial Ischemia, Sodium retaining drugs, and compensated/treated heart failure. [facility] ELECTROLYTES AGAP 13.4 meq/L 10.0 - 20.0 05/23/2014 [facility] ELECTROLYTES CO2 26 meq/L 24 - 32 05/23/2014 [facility] ELECTROLYTES Chloride Lvl 104 meq/L 95 - 109 05/23/2014 [facility] ELECTROLYTES Potassium Lvl 3.4 meq/L 3.5 - 5.1 05/23/2014 [facility] ELECTROLYTES Sodium Lvl 140 meq/L 135 - 145 05/23/2014 [facility] ELECTROLYTES Calcium Lvl 9.0 mg/dL 8.5 - 10.5 05/23/2014 [facility] ELECTROLYTES Creatinine Lvl 2.0 mg/dL 0.5 - 1.4 05/23/2014 [facility] ELECTROLYTES BUN 33 mg/dL 7 - 22 05/23/2014 [facility] ELECTROLYTES Glucose Lvl 108 mg/dL 70 - 99 05/23/2014 3Interpretive Data: Adult reference range values reflect the clinical guidelines of the [place] [employer]. [facility] ELECTROLYTES eGFR 36 mL/min/1.73m2 05/23/2014 1Result Comment: The eGFR is calculated using the CKD-EPI formula. In most young, healthy individuals the eGFR will be >90 mL/min/1.73m2. The eGFR declines with age. An eGFR of 60-89 may be normal in some populations, particularly the elderly, for whom the CKD-EPI formula has not been extensively validated. Use of the eGFR is not recommended in the following populations: Individuals with unstable creatinine concentrations, including patients and those with serious co-morbid conditions. Patients with extremes in muscle mass or diet. The data above are obtained from the National Kidney Disease Education Program (NKDEP) which additionally recommends that when the eGFR is used in patients with extremes of body mass index for purposes of drug dosing, the eGFR should be multiplied by the estimated BMI. [facility] HEMATOLOGY Lymphocytes 27.3 % 20.0 - 40.0 05/23/2014 [facility] HEMATOLOGY Monocytes 8.4 % 2.0 - 12.0 05/23/2014 [facility] HEMATOLOGY Eosinophils 18.6 % 0.0 - 4.0 05/23/2014 [facility] HEMATOLOGY Segs-Bands # 3.1 K/CMM 1.5 - 8.1 05/23/2014 [facility] HEMATOLOGY Lymphocytes # 1.9 K/CMM 1.0 - 5.5 05/23/2014 [facility] HEMATOLOGY Basophils 0.5 % 0.0 - 1.0 05/23/[address] [facility] Microcyte 1+ *ABN* (05/23/14 4:43 AM) None Seen 05/23/[address] [facility] Monocytes # 0.6 K/CMM 0.0 - 0.8 05/23/2014 [facility] HEMATOLOGY Eosinophils # 1.3 K/CMM 0.0 - 0.5 05/23/[address] [facility] Segs 45.2 % 45.0 - 75.0 05/23/[address] [facility] MCHC 31.8 g/dL 32.0 - 36.0 05/23/[address] [facility] RDW 14.8 % 11.5 - 14.5 05/23/[address] [facility] Platelet 145 K/CMM 133 - 450 05/23/[address] [facility] MPV 9.7 fL 7.4 - 10.4 05/23/[address] [facility] WBC 6.9 K/CMM 3.7 - 10.4 05/23/[address] [facility] RBC 4.75 M/CMM 4.70 - 6.10 05/23/[address] [facility] Hgb 11.5 g/dL 14.0 - 18.0 05/23/[address] [facility] MCH 24.2 pg 27.0 - 31.0 05/23/[address] [facility] Hct 36.2 % 42.0 - 54.0 05/23/[address] [facility] MCV 76.2 fL 80.0 - 94.0 05/23/2014 [facility] LIPIDS CHD Risk 4.00 4.00 - 7.30 05/23/2014 [facility] LIPIDS VLDL 23 05/23/2014 [facility] LIPIDS LDL (Calculated) 64 mg/dL <=99 mg/dL 05/23/2014 [facility] LIPIDS HDL 29 mg/dL >=61 mg/dL 05/23/2014 [facility] LIPIDS Chol 116 mg/dL <=199 mg/dL 05/23/2014 [facility] LIPIDS Trig 117 mg/dL <=149 mg/dL 05/23/2014 [facility] CARDIAC ENZYMES Total CK 124 unit/L - 05/23/2014 [facility] CARDIAC ENZYMES Troponin-I null 0.00 - 0.40 05/23/2014 [facility] CARDIAC ENZYMES CK MB Index 0.7 0.0 - 2.5 05/23/2014 [facility] CARDIAC ENZYMES CK MB 0.9 ng/mL 0.5 - 3.6 05/23/2014 [facility] CARDIAC ENZYMES Total CK 115 unit/L 12 - 05/22/2014 [facility] CARDIAC ENZYMES Troponin-I null 0.00 - 0.40 05/22/2014 [facility] CARDIAC ENZYMES CK MB Index 0.8 0.0 - 2.5 05/22/2014 [facility] CARDIAC ENZYMES CK MB 0.9 ng/mL 0.5 - 3.6 05/22/2014 [facility] HEMATOLOGY D-Dimer 0.35 ug/mL FEU 05/22/2014 7Interpretive Data: In DIC, quantitative D-Dimer is generally greater than 0.66 ug/mL FEU. Values of quantitative D-Dimer less than 0.40 ug/mL FEU have been reported to be associated with a low probability of deep vein thrombosis/pulmonary embolism. This test alone should not be used to rule out DVT/PE. [facility] CARDIAC ENZYMES CK MB Index 0.6 0.0 - 2.5 05/22/2014 [facility] CARDIAC ENZYMES CK MB 0.8 ng/mL 0.5 - 3.6 05/22/2014 [facility] CARDIAC ENZYMES Troponin-I null 0.00 - 0.40 05/22/2014 [facility] CARDIAC ENZYMES Total CK 132 unit/L - 05/22/2014 [facility] CHEM PANEL Globulin 3.9 g/dL 2.0 - 4.0 05/22/2014 [facility] CHEM PANEL A/G Ratio 1.0 0.7 - 1.6 05/22/2014 [facility] CHEM PANEL AGAP 12.5 meq/L 10.0 - 20.0 05/22/2014 [facility] CHEM PANEL B/C Ratio 14 6 - 25 05/22/2014 [facility] CHEM PANEL eGFR 28 mL/min/1.73m2 05/22/2014 2Result Comment: The eGFR is calculated using the CKD-EPI formula. In most young, healthy individuals the eGFR will be >90 mL/min/1.73m2. The eGFR declines with age. An eGFR of 60-89 may be normal in some populations, particularly the elderly, for whom the CKD-EPI formula has not been extensively validated. Use of the eGFR is not recommended in the following populations: Individuals with unstable creatinine concentrations, including patients and those with serious co-morbid conditions. Patients with extremes in muscle mass or diet. The data above are obtained from the National Kidney Disease Education Program (NKDEP) which additionally recommends that when the eGFR is used in patients with extremes of body mass index for purposes of drug dosing, the eGFR should be multiplied by the estimated BMI. [facility] CHEM PANEL Alk Phos 66 unit/L 39 - 136 05/22/2014 [facility] CHEM PANEL Bili Total 0.7 mg/dL 0.2 - 1.3 05/22/2014 [facility] CHEM PANEL AST 12 unit/L 0 - 37 05/22/2014 [facility] CHEM PANEL Albumin Lvl 3.8 g/dL 3.5 - 5.0 05/22/2014 [facility] CHEM PANEL ALT 16 unit/L 0 - 65 05/22/2014 [facility] CHEM PANEL Calcium Lvl 9.2 mg/dL 8.5 - 10.5 05/22/2014 [facility] CHEM PANEL Total Protein 7.7 g/dL 6.4 - 8.4 05/22/2014 [facility] CHEM PANEL CO2 27 meq/L 24 - 32 05/22/2014 [facility] CHEM PANEL Chloride Lvl 101 meq/L 95 - 109 05/22/2014 [facility] CHEM PANEL Potassium Lvl 3.5 meq/L 3.5 - 5.1 05/22/2014 [facility] CHEM PANEL Sodium Lvl 137 meq/L 135 - 145 05/22/2014 [facility] CHEM PANEL Creatinine Lvl 2.5 mg/dL 0.5 - 1.4 05/22/2014 [facility] CHEM PANEL Glucose Lvl 125 mg/dL 70 - 99 05/22/2014 4Interpretive Data: Adult reference range values reflect the clinical guidelines of the [place] [employer]. [facility] CHEM PANEL BUN 36 mg/dL 7 - 22 05/22/2014 [facility] HEMATOLOGY PTT 29.7 s 22.9 - 35.8 05/22/2014 8Interpretive Data: Heparin Therapeutic Range: 57 - [address] [facility] PT 12.9 s 12.0 - 14.7 05/22/[address] [facility] INR 0.97 0.85 - 1.17 05/22/2014 6Interpretive Data: RECOMMENDED RANGES FOR PROTIME INR: 2.0-3.0 for most medical and surgical thromboembolic states. 2.5-3.5 for artificial heart valves and recurrent embolism. INR SHOULD BE USED ONLY FOR PATIENTS ON STABLE ANTICOAGULANT THERAPY. [facility] MPV 9.6 fL 7.4 - 10.4 05/22/[address] [facility] WBC 7.8 K/CMM 3.7 - 10.4 05/22/[address] [facility] RBC 5.10 M/CMM 4.70 - 6.10 05/22/[address] [facility] Hgb 12.5 g/dL 14.0 - 18.0 05/22/[address] [facility] Hct 38.5 % 42.0 - 54.0 05/22/[address] [facility] MCHC 32.4 g/dL 32.0 - 36.0 05/22/[address] [facility] Platelet 154 K/CMM 133 - 450 05/22/[address] [facility] RDW 15.0 % 11.5 - 14.5 05/22/[address] [facility] MCV 75.4 fL 80.0 - 94.0 05/22/[address] [facility] MCH 24.4 pg 27.0 - 31.0 05/22/[address] [facility] Eosinophils 23.2 % 0.0 - 4.0 05/22/[address] [facility] Monocytes 6.7 % 2.0 - 12.0 05/22/[address] [facility] Segs-Bands # 3.8 K/CMM 1.5 - 8.1 05/22/[address] [facility] Microcyte 1+ *ABN* (05/22/14 12:20 PM) None Seen 05/22/[address] [facility] Plt Morph Normal (05/22/14 12:20 PM) 05/22/[address] [facility] RBC Morph Normal (05/22/14 12:20 PM) 05/22/[address] [facility] Segs 48.4 % 45.0 - 75.0 05/22/[address] [facility] Lymphocytes 21.1 % 20.0 - 40.0 05/22/[address] [facility] Basophils 0.6 % 0.0 - 1.0 05/22/2014 [facility] HEMATOLOGY Lymphocytes # 1.7 K/CMM 1.0 - 5.5 05/22/2014 [facility] HEMATOLOGY Eosinophils # 1.8 K/CMM 0.0 - 0.5 05/22/2014 [facility] HEMATOLOGY Monocytes # 0.5 K/CMM 0.0 - 0.8 05/22/2014 [facility] Vital Signs Vital Sign Value Date Comments Source Respitory Rate 20 12/24/2016 [facility] Systolic (mm Hg) 123 12/24/2016 [facility] Diastolic (mm Hg) 96 12/24/2016 [facility] Temperature Oral (F) 98.1 F 12/24/2016 [facility] Respitory Rate 24 12/24/2016 [facility] Systolic (mm Hg) 152 12/24/2016 [facility] Diastolic (mm Hg) 67 12/24/2016 [facility] Respitory Rate 18 12/24/2016 [facility] Systolic (mm Hg) 144 12/24/2016 [facility] Diastolic (mm Hg) 75 12/24/2016 [facility] BMI Calculated 34.8 12/24/2016 [facility] Weight 110 12/24/2016 [facility] Height 177.8 cm 12/24/2016 [facility] Heart Rate 91 12/24/2016 [facility] [facility] Heart Rate 89 12/04/2016 [facility] Temperature Oral (F) 98.4 F 12/04/2016 [facility] Respitory Rate 22 12/04/2016 [facility] Systolic (mm Hg) 145 12/04/2016 [facility] Diastolic (mm Hg) 56 12/04/2016 [facility] Systolic (mm Hg) 159 12/04/2016 [facility] Diastolic (mm Hg) 66 12/04/2016 [facility] Respitory Rate 17 12/04/2016 [facility] Temperature Oral (F) 98.4 F 12/04/2016 [facility] Heart Rate 93 12/04/2016 [facility] Respitory Rate 24 12/04/2016 [facility] Heart Rate 89 12/04/2016 [facility] Systolic (mm Hg) 136 12/04/2016 [facility] Diastolic (mm Hg) 56 12/04/2016 [facility] Temperature Oral (F) 98.5 F 12/04/2016 [facility] Weight 110.455 12/04/2016 [facility] Systolic (mm Hg) 142 02/24/2015 [facility] Diastolic (mm Hg) 76 02/24/2015 [facility] Temperature Oral (F) 97.9 F 02/24/2015 [facility] Respitory Rate 16 02/24/2015 [facility] Heart Rate 68 02/24/2015 [facility] Systolic (mm Hg) 136 02/24/2015 [facility] Diastolic (mm Hg) 71 02/24/2015 [facility] Respitory Rate 15 02/24/2015 [facility] Heart Rate 72 02/24/2015 [facility] Temperature Oral (F) 97.9 F 02/24/2015 [facility] Heart Rate 73 02/24/2015 [facility] Respitory Rate 16 02/24/2015 [facility] Diastolic (mm Hg) 77 02/24/2015 [facility] Systolic (mm Hg) 140 02/24/2015 [facility] Temperature Oral (F) 97.7 F 02/24/2015 [facility] Weight 109.091 02/24/2015 [facility] Diastolic (mm Hg) 75 05/23/2014 [facility] Systolic (mm Hg) 132 05/23/2014 [facility] Respitory Rate 18 05/23/2014 [facility] Heart Rate 72 05/23/2014 [facility] Temperature Oral (F) 98.2 F 05/23/2014 [facility] Systolic (mm Hg) 179 05/23/2014 [facility] Diastolic (mm Hg) 70 05/23/2014 [facility] Temperature Oral (F) 98.2 F 05/23/2014 [facility] Respitory Rate 18 05/23/2014 [facility] Heart Rate 69 05/23/2014 [facility] Systolic (mm Hg) 123 05/23/2014 [facility] Respitory Rate 18 05/23/2014 [facility] Diastolic (mm Hg) 79 05/23/2014 [facility] Heart Rate 69 05/23/2014 [facility] Temperature Oral (F) 98.2 F 05/23/2014 [facility] BMI Calculated 34.8 05/22/2014 [facility] Weight 110 05/22/2014 [facility] Height 177.8 cm 05/22/2014 [facility] Encounters Location Location Details Encounter Type Encounter Number Reason For Visit Attending Provider ADM Date DC Date Status Source [facility] Outpatient [id number] 153.3=CANCER OF COLON, SIGMOID THEODOROS VOLOYIANNIS 01/23/2013 01/23/2013 Active [facility] Inpatient [id number] Lucina Santana 05/22/2014 05/23/2014 [facility] Outpatient [id number] Claudy Jarquinr 06/30/2014 07/01/2014 [facility] Outpatient [id number] Jared Devine 12/30/2014 12/31/2014 [facility] [id number] Reanna Levin 02/24/2015 02/24/2015 [facility] [place] [facility] [id number] Aba Garcia 04/27/2015 05/27/2015 [facility] [place] [facility] [place] [facility] Patients [id number] Aba Garcia 05/28/2015 06/23/2015 [facility] Outpatient [id number] Jared Devine 08/06/2015 08/07/2015 [facility] Outpatient [id number] Jared Devine 01/28/2016 01/29/2016 [facility] Emergency [id number] [place] 12/04/2016 12/04/2016 [facility] Emergency [id number] Benjamín Farfan 12/24/2016 12/24/2016 [facility] Outpatient [id number] SIMAK KEVIN GARZA Active [facility] Procedures Procedure Code Date Perfomer Comments Source Colonoscopy [id number] [facility] Excision of left hemicolon [id number] [facility] Radiation therapy management [id number] [facility] Tonsillectomy [id number] [facility] Colonoscopy [id number] [facility] [place] Excision of left hemicolon [id number] [facility] [place] Radiation therapy management [id number] [facility] [place] Tonsillectomy [id number] [facility] [place] Colonoscopy [id number] [facility] Excision of left hemicolon [id number] [facility] Radiation therapy management [id number] [facility] Tonsillectomy [id number] [facility]
--- OUTSIDE RECORDS SUMMARY | 2018-11-01 05:31 | XMS REPORT | Summary of Care ---
Author Organization Unknown Address Unknown Phone Unavailable Encounter [facility] Lisar_ru(FIN) [id number] Date(s): 05/22/14 - 05/23/14 [facility] [address] Discharge Disposition: Home Physician Attending: Lucina Santana MD Physician Admitting: Lucina Santana MD Reason for Visit CHEST PAIN Vital Signs 1 2 3 Most recent to oldest [Reference Range]: 177.8 cm (05/22/14 12:10 PM) Height 98.2 DegF (05/23/14 12:03 PM) 98.2 DegF (05/23/14 8:00 AM) 98.2 DegF (05/23/14 3:26 AM) Temperature Oral [96.4-99.1 DegF] 132 mmHg (05/23/14 12:03 PM) 179 mmHg *HI* (05/23/14 8:00 AM) 123 mmHg (05/23/14 3:26 AM) Systolic Blood Pressure [90-140 mmHg] 75 mmHg (05/23/14 12:03 PM) 70 mmHg (05/23/14 8:00 AM) 79 mmHg (05/23/14 3:26 AM) Diastolic Blood Pressure [60-90 mmHg] 18 BRMIN (05/23/14 12:03 PM) 18 BRMIN (05/23/14 8:00 AM) 18 BRMIN (05/23/14 3:26 AM) Respiratory Rate [14-20 BRMIN] 72 bpm (05/23/14 12:03 PM) 69 bpm (05/23/14 8:00 AM) 69 bpm (05/23/14 3:26 AM) Peripheral Pulse Rate [60-100 bpm] 110 kg (05/22/14 12:10 PM) Weight 34.8 m2 (05/22/14 12:10 PM) Body Mass Index Problem List Condition Effective Dates Status Health Status Informant Asthma(Confirmed) Active Benign Active hypertension(Confirm ed) Cancer of Resolved prostate(Confirmed) Inflammatory polyps Active of colon(Confirmed)1 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 Allergies, Adverse Reactions, Alerts Substance Reaction Severity Status NKDA Active Medications Advair Diskus 250 mcg-50 mcg inhalation powder 1 puff, Route: INHALATION, Drug Form: AERO, Dosing Weight 110, kg, BID, Start da te: 05/23/14 9:00:00, Duration: 30 day, Stop date: 06/21/14 17:00:00 Start Date: 05/23/14 Stop Date: 05/22/14 Status: Deleted Genevieve 180 mg, Route: PO, Drug form: TAB, Daily, Dosing Weight 110, kg, Start date: 9:00:00, Duration: 30 day, Stop date: 06/21/14 9:00:00 Start Date: 05/23/14 Stop Date: 05/22/14 Status: Deleted Ambien 5 mg, Route: PO, Bedtime, Dosing Weight 110, kg, PRN Insomnia, Start date: 05/22 18:29:00, Duration: 30 day, Stop date: 06/21/14 18:28:00 Start Date: 05/22/14 Stop Date: 05/22/14 Status: Deleted aspirin 325 mg, Route: PO, Drug form: TAB, ONCE, Dosing Weight 110, kg, Priority: STAT, Start date: 05/22/14 13:30:00, Stop date: 05/22/14 13:30:00 Start Date: 05/22/14 Stop Date: 05/22/14 Status: Completed aspirin 325 mg tablet 325 mg, 1 tab, Route: PO, Drug form: TAB, ONCE, Dosing Weight 110, kg, Start mary ellen e: 05/22/14 15:27:00, Stop date: 05/22/14 15:27:00 Notes: Take with food. Start Date: 05/22/14 Stop Date: 05/22/14 Status: Completed budesonide-formoterol 160 mcg-4.5 mcg/inh inhalation aerosol with adapter 2 inhalation, Route: INHALATION, Drug Form: AERO/A, Q12H, Start date: 05/22/14 2 1:00:00, Duration: 30 day, Stop date: 06/21/14 9:00:00 Notes: (Same as: Symbicort) Start Date: 05/22/14 Stop Date: 05/23/14 Status: Discontinued Claritin 10 mg, 1 tab, Route: PO, Drug form: TAB, Daily, Start date: 05/23/14 9:00:00, Du ration: 30 day, Stop date: 06/21/14 9:00:00 Notes: 1 hr before meals (Same as: Claritin) Start Date: 05/23/14 Stop Date: 05/23/14 Status: Discontinued enoxaparin 30 mg, 0.3 mL, Route: SUB-Q, Drug form: INJ, [id number], Dosing Weight 110, kg, St art date: 05/22/14 21:00:00, Duration: 30 day, Stop date: 06/20/14 21:00:00 Notes: (Same as: Lovenox) Start Date: 05/22/14 Stop Date: 05/23/14 Status: Discontinued glipiZIDE-metformin 2.5 mg-500 mg oral tablet 1 tab, Route: PO, Dosing Weight 110, kg, Daily, Start date: 05/23/14 9:00:00, Du ration: 30 day, Stop date: 06/21/14 9:00:00 Start Date: 05/23/14 Stop Date: 05/22/14 Status: Deleted Glucophage 500 mg, 1 tab, Route: PO, Drug form: TAB, Daily, Start date: 05/23/14 9:00:00, D uration: 30 day, Stop date: 06/21/14 9:00:00 Notes: (Same as: Glucophage) Take with meal Start Date: 05/23/14 Stop Date: 05/23/14 Status: Discontinued Glucotrol 2.5 mg, 0.5 tab, Route: PO, Drug form: TAB, Daily, Start date: 05/23/14 9:00:00, Duration: 30 day, Stop date: 06/21/14 9:00:00 Notes: (Same as: Glucotrol) 30 min before meals. Start Date: 05/23/14 Stop Date: 05/23/14 Status: Discontinued morphine Sulfate 4 mg, Route: IVP, Drug form: INJ, ONCE, Dosing Weight 110, kg, Priority: STAT, S tart date: 05/22/14 13:30:00, Stop date: 05/22/14 13:30:00 Start Date: 05/22/14 Stop Date: 05/22/14 Status: Completed nitroglycerin SL Tab 0.4 mg, 1 tab, Route: SL, Drug form: TAB, Q5Min, Dosing Weight 110, kg, PRN Ches t Pain, Start date: 05/22/14 15:27:00, Duration: 3 doses or times, Stop date: Patsy sheriff # of times Notes: (Same as:Nitroquick, Nitrostat)"Do Not Crush" Sublingual tablet Start Date: 05/22/14 Stop Date: 05/23/14 Status: Discontinued NS 1,000 mL 1,000 mL, Rate: 100 ml/hr, Infuse over: 10 hr, Route: IV, Dosing Weight 110 kg, Total Volume: 1,000, Start date: 05/22/14 18:26:00, Duration: 30 day, Stop date: 06/21/14 18:25:00 Start Date: 05/22/14 Stop Date: 05/23/14 Status: Discontinued Plavix 75 mg, 1 tab, Route: PO, Drug form: TAB, Daily, Dosing Weight 110, kg, Start mary ellen e: 05/23/14 9:00:00, Duration: 30 day, Stop date: 06/21/14 9:00:00 Notes: (Same As: Plavix) Start Date: 05/23/14 Stop Date: 05/23/14 Status: Discontinued Restoril 7.5 mg, 1 cap, Route: PO, Drug form: CAP, Bedtime, PRN Insomnia, Start date: 18:33:00, Duration: 30 day, Stop date: 06/21/14 18:32:00 Notes: (Same As: Restoril) Start Date: 05/22/14 Stop Date: 05/23/14 Status: Discontinued Saline Flush 0.9% 5 ml, Route: IVP, Drug Form: INJ, Dosing Weight 110, kg, PRN, PRN Line Flush, St art date: 05/22/14 15:27:00, Duration: 30 day, Stop date: 06/21/14 15:26:00 Notes: (Same as: BD Posiflush) Start Date: 05/22/14 Stop Date: 05/23/14 Status: Discontinued Saline Flush 0.9% 5 ml, Route: IVP, Drug Form: INJ, Dosing Weight 110, kg, Q12H, Start date: 05/22 21:00:00, Duration: 30 day, Stop date: 06/21/14 9:00:00 Notes: (Same as: BD Posiflush) Start Date: 05/22/14 Stop Date: 05/23/14 Status: Discontinued simvastatin 10 mg, 1 tab, Route: PO, Drug form: TAB, Bedtime, Dosing Weight 110, kg, Start d ate: 05/22/14 21:00:00, Duration: 30 day, Stop date: 06/20/14 21:00:00 Notes: (Same as: Zocor) Start Date: 05/22/14 Stop Date: 05/23/14 Status: Discontinued Sodium Chloride 0.9% (Bolus) IV 1,000 mL, 1,000 ml/hr, Infuse Over: 1 hr, Route: IV, ONCE, Priority: STAT, Dosin g Weight 110 kg, Start date: 05/22/14 13:31:00, Duration: 1 doses or times, Stop date: 05/22/14 13:31:00 Start Date: 05/22/14 Stop Date: 05/22/14 Status: Completed tamsulosin 0.4 mg, 1 cap, Route: PO, Drug form: CAP, Daily, Dosing Weight 110, kg, Start da te: 05/23/14 9:00:00, Duration: 30 day, Stop date: 06/21/14 9:00:00 Notes: (Same As: Flomax) "Do Not Crush" Start Date: 05/23/14 Stop Date: 05/23/14 Status: Discontinued Tylenol 650 mg, 2 tab, Route: PO, Drug form: TAB, Q4H, Dosing Weight 110, kg, PRN Pain S core 1-3, Start date: 05/22/14 18:29:00, Duration: 30 day, Stop date: 06/21/14 1 8:28:00 Notes: Do not exceed 4 gm/day. (Same as: Tylenol) Start Date: 05/22/14 Stop Date: 05/23/14 Status: Discontinued Results ELECTROLYTES 1 2 3 Most recent to oldest [Reference Range]: 140 mEq/L (05/23/14 4:43 AM) 137 mEq/L (05/22/14 12:20 PM) Sodium Lvl [135-145 mEq/L] 3.4 mEq/L *LOW* (05/23/14 4:43 AM) 3.5 mEq/L (05/22/14 12:20 PM) Potassium Lvl [3.5-5.1 mEq/L] 104 mEq/L (05/23/14 4:43 AM) 101 mEq/L (05/22/14 12:20 PM) Chloride Lvl [95-109 mEq/L] 26 mEq/L (05/23/14 4:43 AM) 27 mEq/L (05/22/14 12:20 PM) CO2 [24-32 mEq/L] 13.4 mEq/L (05/23/14 4:43 AM) 12.5 mEq/L (05/22/14 12:20 PM) AGAP [10.0-20.0 mEq/L] CHEM PANEL 1 2 3 Most recent to oldest [Reference Range]: 2.0 mg/dL *HI* (05/23/14 4:43 AM) 2.5 mg/dL *HI* (05/22/14 12:20 PM) Creatinine Lvl [0.5-1.4 mg/dL] 36 mL/min/1.73m2 1 *NA* (05/23/14 4:43 AM) 28 mL/min/1.73m2 2 *NA* (05/22/14 12:20 PM) eGFR 33 mg/dL *HI* (05/23/14 4:43 AM) 36 mg/dL *HI* (05/22/14 12:20 PM) BUN [7-22 mg/dL] 14 (05/22/14 12:20 PM) B/C Ratio [6-25] 108 mg/dL 3 *HI* (05/23/14 4:43 AM) 125 mg/dL 4 *HI* (05/22/14 12:20 PM) Glucose Lvl [70-99 mg/dL] 7.7 g/dL (05/22/14 12:20 PM) Total Protein [6.4-8.4 g/dL] 3.8 g/dL (05/22/14 12:20 PM) Albumin Lvl [3.5-5.0 g/dL] 3.9 g/dL (05/22/14 12:20 PM) Globulin [2.0-4.0 g/dL] 1.0 (05/22/14 12:20 PM) A/G Ratio [0.7-1.6] 9.0 mg/dL (05/23/14 4:43 AM) 9.2 mg/dL (05/22/14 12:20 PM) Calcium Lvl [8.5-10.5 mg/dL] 16 unit/L (05/22/14 12:20 PM) ALT [0-65 unit/L] 12 unit/L (05/22/14 12:20 PM) AST [0-37 unit/L] 66 unit/L (05/22/14 12:20 PM) Alk Phos [39-136 unit/L] 0.7 mg/dL (05/22/14 12:20 PM) Bili Total [0.2-1.3 mg/dL] 1Result Comment: The eGFR is calculated using [...] from the National Kidney Disease Education Program ( NKDEP) which additionally recommends that when the eGFR is used in patients with extremes of body mass index for purposes of drug dosing, the eGFR should be mul tiplied by the estimated BMI. 2Result Comment: The eGFR is calculated using [...] from the National Kidney Disease Education Program ( NKDEP) which additionally recommends that when the eGFR is used in patients with extremes of body mass index for purposes of drug dosing, the eGFR should be mul tiplied by the estimated BMI. 3Interpretive Data: Adult reference range values reflect the clinical guidelines of the [place] [employer]. 4Interpretive Data: Adult reference range values reflect the clinical guidelines of the [place] [employer]. CARDIAC ENZYMES 1 2 3 Most recent to oldest [Reference Range]: 124 unit/L (05/23/14 12:02 AM) 115 unit/L (05/22/14 6:15 PM) 132 unit/L (05/22/14 12:20 PM) Total CK [12-191 unit/L] 0.9 ng/mL (05/23/14 12:02 AM) 0.9 ng/mL (05/22/14 6:15 PM) 0.8 ng/mL (05/22/14 12:20 PM) CK MB [0.5-3.6 ng/mL] 0.7 (05/23/14 12:02 AM) 0.8 (05/22/14 6:15 PM) 0.6 (05/22/14 12:20 PM) CK MB Index [0.0-2.5] <0.02 ng/mL (05/23/14 12:02 AM) <0.02 ng/mL (05/22/14 6:15 PM) <0.02 ng/mL (05/22/14 12:20 PM) Troponin-I [0.00-0.40 ng/mL] 19 pg/mL 5 (05/23/14 4:43 AM) BNP [<=100 pg/mL] 5Interpretive Data: Elevated results are in line with increasing severity of congestive heart failure. Minor elevations between 100 and 300 may be seen with Myocardial Ischemia, Sodium retaining drugs, and compensated/treated heart failure. LIPIDS 1 2 3 Most recent to oldest [Reference Range]: 4.00 (05/23/14 4:43 AM) CHD Risk [4.00-7.30] 116 mg/dL (05/23/14 4:43 AM) Chol [<=199 mg/dL] 117 mg/dL (05/23/14 4:43 AM) Trig [<=149 mg/dL] 29 mg/dL *LOW* (05/23/14 4:43 AM) HDL [>=61 mg/dL] 64 mg/dL (05/23/14 4:43 AM) LDL (Calculated) [<=99 mg/dL] 23 *NA* (05/23/14 4:43 AM) VLDL HEMATOLOGY 1 2 3 Most recent to oldest [Reference Range]: 6.9 K/CMM (05/23/14 4:43 AM) 7.8 K/CMM (05/22/14 12:20 PM) WBC [3.7-10.4 K/CMM] 4.75 M/CMM (05/23/14 4:43 AM) 5.10 M/CMM (05/22/14 12:20 PM) RBC [4.70-6.10 M/CMM] 11.5 g/dL *LOW* (05/23/14 4:43 AM) 12.5 g/dL *LOW* (05/22/14 12:20 PM) Hgb [14.0-18.0 g/dL] 36.2 % *LOW* (05/23/14 4:43 AM) 38.5 % *LOW* (05/22/14 12:20 PM) Hct [42.0-54.0 %] 76.2 fL *LOW* (05/23/14 4:43 AM) 75.4 fL *LOW* (05/22/14 12:20 PM) MCV [80.0-94.0 fL] 24.2 pg *LOW* (05/23/14 4:43 AM) 24.4 pg *LOW* (05/22/14 12:20 PM) MCH [27.0-31.0 pg] 31.8 g/dL *LOW* (05/23/14 4:43 AM) 32.4 g/dL (05/22/14 12:20 PM) MCHC [32.0-36.0 g/dL] 14.8 % *HI* (05/23/14 4:43 AM) 15.0 % *HI* (05/22/14 12:20 PM) RDW [11.5-14.5 %] 145 K/CMM (05/23/14 4:43 AM) 154 K/CMM (05/22/14 12:20 PM) Platelet [133-450 K/CMM] 9.7 fL (05/23/14 4:43 AM) 9.6 fL (05/22/14 12:20 PM) MPV [7.4-10.4 fL] 45.2 % (05/23/14 4:43 AM) 48.4 % (05/22/14 12:20 PM) Segs [45.0-75.0 %] 27.3 % (05/23/14 4:43 AM) 21.1 % (05/22/14 12:20 PM) Lymphocytes [20.0-40.0 %] 8.4 % (05/23/14 4:43 AM) 6.7 % (05/22/14 12:20 PM) Monocytes [2.0-12.0 %] 18.6 % *HI* (05/23/14 4:43 AM) 23.2 % *HI* (05/22/14 12:20 PM) Eosinophils [0.0-4.0 %] 0.5 % (05/23/14 4:43 AM) 0.6 % (05/22/14 12:20 PM) Basophils [0.0-1.0 %] 3.1 K/CMM (05/23/14 4:43 AM) 3.8 K/CMM (05/22/14 12:20 PM) Segs-Bands # [1.5-8.1 K/CMM] 1.9 K/CMM (05/23/14 4:43 AM) 1.7 K/CMM (05/22/14 12:20 PM) Lymphocytes # [1.0-5.5 K/CMM] 0.6 K/CMM (05/23/14 4:43 AM) 0.5 K/CMM (05/22/14 12:20 PM) Monocytes # [0.0-0.8 K/CMM] 1.3 K/CMM *HI* (05/23/14 4:43 AM) 1.8 K/CMM *HI* (05/22/14 12:20 PM) Eosinophils # [0.0-0.5 K/CMM] Normal (05/22/14 12:20 PM) RBC Morph 1+ *ABN* (05/23/14 4:43 AM) 1+ *ABN* (05/22/14 12:20 PM) Microcyte [None Seen] Normal (05/22/14 12:20 PM) Plt Morph 12.9 seconds (05/22/14 12:20 PM) PT [12.0-14.7 seconds] 0.97 6 (05/22/14 12:20 PM) INR [0.85-1.17] 0.35 ug/mL FEU 7 *NA* (05/22/14 12:20 PM) D-Dimer 29.7 seconds 8 (05/22/14 12:20 PM) PTT [22.9-35.8 seconds] 6Interpretive Data: RECOMMENDED RANGES FOR PROTIME INR: 2.0-3.0 for most medical and surgical thromboembolic states. 2.5-3.5 for artificial heart valves and recurrent embolism. INR SHOULD BE USED ONLY FOR PATIENTS ON STABLE ANTICOAGULANT THERAPY. 7Interpretive Data: In DIC, quantitative D-Dimer is generally greater than 0.66 ug/mL FEU. Values of quantitative D-Dimer less than 0.40 ug/mL FEU have been reported to be associated with a low probability of deep vein thrombosis/pulmonary embolism. This test alone should not be used to rule out DVT/PE. 8Interpretive Data: Heparin Therapeutic Range: 57 - 92 Seconds Medications Administered During Your Visit No data available for this section Immunizations No data available for this section Procedures Procedure Type Body Site Date of Procedure Related Diagnosis Excision of left hemicolon Social History Social History Type Response Smoking Status Never smoker, Exposure to Tobacco Smoke None, Cigarette Smoking Last 365 Days No, Reg Smoking Cessation Counseling No Assessment and Plan Extracted from: Title: Clinical Document Author: Lucina Santana MD Date: 05/23/[address] Lucina Santana (Covering for Dr Degroot) SUBJECTIVE The patient has no new symptoms She recieved blood transfusion The patient denies chest pain, SOB, dizziness, palpitation or syncope No abdominal pain, fever or skin rash OBJECTIVE General: Not in apparent distress V/S: See below Eyes: EOMI ENT: Moist mucosa Pulmonary: Symmetrical chest expansion. Good air entry bilateral, no crackles, no wheeze, nor rhonchi present. CVS: Regular rate, regular rhythm, Normal S1,S2. No S3 or S4. GI (abdomen): mildly distended, non tender. Bowel sounds are present Musculoskeletal: No clubbing. Extremities: No swelling Skin: No petechiae nor rash Neurologic: AAOx3. No gross focal neurologic deficit Psychiatric: Normal mood and affect Vitals and Temp: VitalsTmp(F)[id number] 05/23 12:[id number]--- 05/23 08:[id number]--- 05/23 03:2698.787610/885871--- 05/22 23:3098.447925/[id number]--- 05/22 19:[id number]--- 24 Hr Tmax: 98.7F (37.06c) at 05/22 23:30Vital Signs are the last 5 in the past 48 hours. 24hr Labs 05/23 0443 Glucose Rze843 H BUN33 H Creatinine Lvl2.0 H Sodium Uum130 Potassium Lvl3.4 L Chloride Rgf104 CO226 AGAP13.4 Calcium Lvl9.0 eGFR36 Jnro312 Gzqt821 HDL29 L LDL (Calculated)64 VLDL23 CHD Risk4.00 BNP19 WBC6.9 RBC4.75 Hgb11.5 L Hct36.2 L MCV76.2 L MCH24.2 L MCHC31.8 L RDW14.8 H Uqekyvax830 MPV9.7 Segs45.2 Monocytes8.4 Fxhnmvqpqef00.3 Alantkbymob71.6 H Basophils0.5 Segs-Bands #3.1 Lymphocytes #1.9 Monocytes #0.6 Eosinophils #1.3 H Microcyte1+ 05/23 0002 Total CK124 Troponin-I<0.02 CK MB0.9 CK MB Index0.7 05/22 1815 Total CK115 Troponin-I<0.02 CK MB0.9 CK MB Index0.8 05/22 1220 D-Dimer0.35 Medications (14) Active Scheduled: (9) Budesonide/Formoterol 160-4.5 microgram 6gm AERO/A inh 2 inhalation, INHALATION, Q12H clopidogrel 75 mg TAB 75 mg 1 tab, PO, Daily enoxaparin 30 mg/0.3 ml INJ 30 mg 0.3 mL, SUB-Q, [id number] glipiZIDE 5 mg TAB 2.5 mg 0.5 tab, PO, Daily loratadine 10 mg TAB 10 mg 1 tab, PO, Daily metFORMIN 500 mg TAB 500 mg 1 tab, PO, Daily simvastatin 10 mg TAB 10 mg 1 tab, PO, Bedtime sodium chloride 0.9% 10 ml flush syr BD 5 ml, IVP, Q12H tamsulosin 0.4 mg CAP 0.4 mg 1 cap, PO, Daily Continuous: (1) sodium chloride 0.9% 1000 ml INJ 1,000 mL 1,000 mL, IV, 100 ml/hr PRN: (4) acetaminophen 325 mg TABLET 650 mg 2 tab, PO, Q4H nitroglycerin 0.4 mg TAB 25's btl 0.4 mg 1 tab, SL, Q5Min sodium chloride 0.9% 10 ml flush syr BD 5 ml, IVP, PRN temazepam 7.5 mg CAP 7.5 mg 1 cap, PO, Bedtime ASSESSMENT 1. Paroxysmal AFib- now NSR 2.Acute GI bleed 3.Atypical chest pain- resolved and CA has been ruled out-No need to evaluate at this time for CAD since it is atypical and has reolved. This can be addressed as an outpatient PLAN & TREATMENT Due to the recent GI bleed ,she is not a candidate for antiocoagulation Due to liver disease, she is not a candidate for amiodarone Continue current dose of digoxin No further cardiac recommendation Ok from cardiac point of view for discharge Please call if needed Addendum THis note was entered in error and was meant for another patient by Patient being discharged and discharge note was dictated Lucina Santana MD on 05/23/2014 14:25
--- OUTSIDE RECORDS SUMMARY | 2018-11-01 05:32 | XMS REPORT ---
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 Allergies, Adverse Reactions, Alerts This patient has no known allergies or adverse reactions. Medications This patient has no known medications. Results Test Description Test Time Test Comments Text Results Atomic Results Result Comments CHEST 2 VIEWS 2018-10-31 11:00:00 [place] [address] Patient Name: PK WOOD MR #: [id number] : 1935 Age/Sex: 83/M Req #: [id number] Adm Physician: Ordered by: ROM MONTES MD Report #: [id number] Location: OR Room/Bed: Procedure: [id number] DX/CHEST 2 VIEWS Exam Date: 10/31/18 Exam Time: 1040 REPORT STATUS: Signed EXAMINATION: PA and lateral views of the chest. C OMPARISON: None CLINICAL HISTORY: Preoperative study for port placement DISCUSSION: The lungs are well-inflated. No focal airspace consolidation, pleural effusion, or pneumothorax. Tortuous thoracic aorta with atherosclerotic calcification. Normal heart size. No overt pulmonary edema. No acute osseous abnormality. IMPRESSION: No acute cardiopulmonary abnormalities. Signed by: Dr. Latoya Finch M.D. on 10/31/2018 11:02 AM Dictated By: LATOYA FINCH MD 01 Transcribed By: CISCO on 10/31/181101 COPY TO: ROM MONTES MD CHEST 2 VIEWS [facility] [address] [place] [address] Patient Name: PK WOOD MR #: [id number] : 1935 Age/Sex: 82/M Req #: [id number] Adm Physician: LIZBETH DEVINE MD Ordered by: LIZBETH DEVINE MD Report #: [id number] Location: MED/SURG Room/Bed: [facility] Procedure: [id number] DX/CHEST 2 VIEWS Exam Date: 07/02/17 Exam Time: 0855 REPORT STATUS: Signed PROCEDURE: X-RAY CHEST, TWO VIEWS COMPARISON: CT chest without contrast 06/30/2017. INDICATIONS: COUGH, WHEEZING, SHORTNESS OF BREATH FINDINGS: The lungs remain well inflated. No focal consolidation, pleural effusion, or pneumothorax. Tortuosity and atherosclerotic calcification of the thoracic aorta with otherwise normal cardiomediastinal contour. No pulmonary edema. No acute osseous abno rmality. CONCLUSION: No acute cardiopulmonary abnormality. Dictated by: Latoya Finch M.D. on 07/02/2017 at 9:27 Electronically approved by: Latoya Finch M.D. on 07/02/2017 at 9:27 Dictated By: LATOYA FINCH MD 6 Transcribed By: LATHA on 07/02/17926 COPY TO: LIZBETH DEVINE MD CT CHEST WO [address] [place], [place] [address] Patient Name: PK WOOD MR #: [id number] : 1935 Age/Sex: 82/M Req #: [id number] [facility] Physician: LIZBETH DEVINE MD Ordered by: LIZBETH DEVINE MD Report #: [id number] Location: [facility] Room/Bed: [place] [address] Procedure: [id number] CT/CT CHEST WO Exam Date: 06/30/17 Exam Time: 1317 REPORT STATUS: Signed EXAM: CT Chest WITHOUT contrast INDICATION: Shortness of breath. COMPARISON: None available TECHNIQUE: Chest was scanned utilizing a multidetector helical scanner from the lung apex through the level of the diaphragm. Coronal and sagittal reconstructions were submitted for interpretation. The lack of intravenous contrast limits the evaluation of the solid organs, vasculature, and possible lymphadenopathy. Protocol: Chest without contrast CONTRAST: No intravenous contrast was administered as per physician request. COMPLICATIONS: None RADIATION DOSE: Total exam DLP: 523.2 mGy*cm. CTDIvol has been reviewed. It is below the limits set by the Radiation Protocol Committee (RPC). FINDINGS: LINES/ TUBES: None. Heart: No cardiomegaly. No pericardial effusion. Vessels: Minimal atherosclerotic calcifications of the thoracic aorta and coronary arteries. Limited evaluation. Mediastinum: No mediastinal or hilar mass or lymphadenopathy. Normal thyroid. Lungs: No parenchymal mass. No focal consolidation. Normal parenchyma. Pleura: No pleural effusion. No pneumothorax. Soft tissues: Normal. No axillary mass or lymphadenopathy. Bones: No acute osseous abnormality. Degenerative changes of the thoracic spine. Adrenal glands: No adrenal nodules.. Abdomen: The partially visualized portions of the upper abdomen are unremarkable.. IMPRESSION: No acute abnormality of the chest. Signed by: Dr. Mecca Vasquez M.D. on 06/30/2017 1:43 PM Dictated By: MECCA VASQUEZ MD 1343 Transcribed By: CISCO on 06/30/17 1343 COPY TO: LIZBETH DEVINE MD
--- OUTSIDE RECORDS SUMMARY | 2018-11-01 05:32 | XMS REPORT | Summary of Care ---
Author Author [facility] Organization [facility] Address Unknown Phone Unavailable Encounter HQ Chauncey(ZULEMA) [id number] Date(s): 12/04/16 - 12/04/16 [facility] [address] [place] [address]- [phone] Discharge Diagnosis: Asthma Discharge Diagnosis: Bronchitis Discharge Disposition: Home or Self Care Attending Physician: Luna Grove MD Vital Signs 1 2 3 Most recent to oldest [Reference Range]: 98.4 DegF (12/04/16 1:06 PM) 98.4 DegF (12/04/16 12:37 PM) 98.5 DegF (12/04/16 10:21 AM) Temperature Oral [96.4-99.1 DegF] 145/56 mmHg *HI* (12/04/16 1:06 PM) 159/66 mmHg *HI* (12/04/16 12:37 PM) 136/56 mmHg (12/04/16 10:21 AM) Blood Pressure [90-140/60-90 mmHg] 22 BRMIN *HI* (12/04/16 1:06 PM) 17 BRMIN (12/04/16 12:37 PM) 24 BRMIN *HI* (12/04/16 10:30 AM) Respiratory Rate [14-20 BRMIN] 89 bpm (12/04/16 1:06 PM) 93 bpm (12/04/16 12:37 PM) 89 bpm (12/04/16 10:30 AM) Peripheral Pulse Rate [60-100 bpm] 110.455 kg (12/04/16 10:08 AM) Weight Problem List Condition Effective Dates Status Health Status Informant Asthma(Confirmed) Active Benign Active hypertension(Confirm ed) Cancer of Resolved prostate(Confirmed) Chronic anemia1 02/03/13 Active Diabetes(Confirmed) Active Inflammatory polyps Active of colon(Confirmed)2 Malignant tumor of 02/03/13 Active sigmoid colon3 [place] - Myocardial < 09/24/87 Resolved infarction(Confirmed )4 Polyp of large 02/03/13 Active intestine5 Right sided Resolved weakness(Confirmed)6 Sleep Active apnea(Confirmed) SOB - Shortness of Active breath(Confirmed) Stroke(Confirmed)7 Resolved 1Data migrated from [employer] on 02/20/15. 2Signmoid 3Data migrated from [employer] on 02/20/15. 4 Approx 5Data migrated from [employer] on 02/20/15. 6r/t stroke 7right leg affected. Allergies, Adverse Reactions, Alerts Substance Reaction Severity Status NKDA Active Medications albuterol-ipratropium 2.5-0.5 mg inhalation solution 9 mL, Route: NEB, Dosing Weight 110.455, kg, ONCE, STAT, Start date: 12/04/16 10 :28:00 CDT, Stop date: 12/04/16 10:28:00 CDT Start Date: 12/04/16 Stop Date: 12/04/16 Status: Completed albuterol-ipratropium 2.5-0.5 mg inhalation solution 9 mL, Route: NEB, Drug Form: SOLN, Dosing Weight 110.455, kg, ONCE, STAT, Start date: 12/04/16 10:31:00 CDT, Stop date: 12/04/16 10:31:00 CDT Notes: (Same as: Hugh) Start Date: 12/04/16 Stop Date: 12/04/16 Status: Completed azithromycin 500 mg oral tablet 500 mg=1 tab, PO, Daily, X 5 day, # 5 tab, 0 Refill(s) Start Date: 12/04/16 Stop Date: 12/09/16 Status: Ordered azithromycin 500 mg oral tablet 500 mg, Route: PO, Drug form: TAB, ONCE, Dosing Weight 110.455, kg, Start date: 12/04/16 11:31:00 CDT, Stop date: 12/04/16 11:31:00 CDT Start Date: 12/04/16 Stop Date: 12/04/16 Status: Completed magnesium sulfate 2 gm, 50 mL, Route: IVPB, Drug form: INJ, ONCE, Dosing Weight 110.455, kg, Prior ity: STAT, Start date: 12/04/16 10:31:00 CDT, Stop date: 12/04/16 10:31:00 CDT Notes: WASTE: F/P - Sink; E - Municipal Trash Bin Start Date: 12/04/16 Stop Date: 12/04/16 Status: Completed methylPREDNISolone SODium SUCCinate 125 mg, 2 mL, Route: IVP, Drug form: INJ, ONCE, Dosing Weight 110.455, kg, Prior ity: STAT, Start date: 12/04/16 10:31:00 CDT, Stop date: 12/04/16 10:31:00 CDT Notes: (Same as:Solu-MEDROL, A-Methapred) Start Date: 12/04/16 Stop Date: 12/04/16 Status: Completed predniSONE 50 mg oral tablet 50 mg=1 tab, PO, Daily, X 5 day, # 5 tab, 0 Refill(s) Start Date: 12/04/16 Stop Date: 12/09/16 Status: Ordered Saline Flush 0.9% 10 mL, Route: IVP, Drug Form: INJ, Dosing Weight 110.455, kg, PRN, PRN Line Flus h, Start date: 12/04/16 10:31:00 CDT, Duration: 30 day, Stop date: 01/03/17 10:3 0:00 CDT Notes: preservative free. Start Date: 12/04/16 Stop Date: 12/04/16 Status: Discontinued Results ELECTROLYTES Most recent to 1 oldest [Reference Range]: Sodium Lvl [135-145 144 mEq/L mEq/L] (12/04/16 10:50 AM) Potassium Lvl 3.5 mEq/L [3.5-5.1 mEq/L] (12/04/16 10:50 AM) Chloride Lvl [95-109 104 mEq/L mEq/L] (12/04/16 10:50 AM) CO2 [24-32 mEq/L] 30 mEq/L (12/04/16 10:50 AM) AGAP [10.0-20.0 13.5 mEq/L mEq/L] (12/04/16 10:50 AM) CHEM PANEL Most recent to 1 oldest [Reference Range]: Creatinine Lvl 1.69 mg/dL [0.50-1.40 mg/dL] *HI* (12/04/16 10:50 AM) eGFR 44 mL/min/1.73m2 1 *NA* (12/04/16 10:50 AM) BUN [7-22 mg/dL] 25 mg/dL *HI* (12/04/16 10:50 AM) B/C Ratio [6-25] 15 (12/04/16 10:50 AM) Glucose Lvl [70-99 126 mg/dL mg/dL] *HI* (12/04/16 10:50 AM) Total Protein 7.1 g/dL [6.4-8.4 g/dL] (12/04/16 10:50 AM) Albumin Lvl [3.5-5.0 3.3 g/dL g/dL] *LOW* (12/04/16 10:50 AM) Globulin [2.7-4.2 3.8 g/dL g/dL] (12/04/16 10:50 AM) A/G Ratio [0.7-1.6] 0.9 (12/04/16 10:50 AM) Calcium Lvl 9.0 mg/dL [8.5-10.5 mg/dL] (12/04/16 10:50 AM) Phosphorus [2.5-4.5 2.5 mg/dL mg/dL] (12/04/16 10:50 AM) Magnesium Lvl 1.6 mg/dL [1.8-2.4 mg/dL] *LOW* (12/04/16 10:50 AM) ALT [0-65 unit/L] 17 unit/L (12/04/16 10:50 AM) AST [0-37 unit/L] 8 unit/L (12/04/16 10:50 AM) Alk Phos [39-136 84 unit/L unit/L] (12/04/16 10:50 AM) Bili Total [0.2-1.3 0.7 mg/dL mg/dL] (12/04/16 10:50 AM) 1Result Comment: The eGFR is calculated using [...] be mul tiplied by the estimated BMI. CARDIAC ENZYMES Most recent to 1 oldest [Reference Range]: Total CK [12-191 69 unit/L unit/L] (12/04/16 10:50 AM) CK MB [0.5-3.6 <0.5 ng/mL ng/mL] (12/04/16 10:50 AM) CK MB Index <0.7 [0.0-2.5] (12/04/16 10:50 AM) Troponin-I <0.02 ng/mL [0.00-0.40 ng/mL] (12/04/16 10:50 AM) HEMATOLOGY Most recent to 1 oldest [Reference Range]: WBC [3.7-10.4 K/CMM] 9.8 K/CMM (12/04/16 10:50 AM) RBC [4.70-6.10 4.82 M/CMM M/CMM] (12/04/16 10:50 AM) Hgb [14.0-18.0 g/dL] 11.7 g/dL *LOW* (12/04/16 10:50 AM) Hct [42.0-54.0 %] 36.4 % *LOW* (12/04/16 10:50 AM) MCV [80.0-94.0 fL] 75.4 fL *LOW* (12/04/16 10:50 AM) MCH [27.0-31.0 pg] 24.2 pg *LOW* (12/04/16 10:50 AM) MCHC [32.0-36.0 32.1 g/dL g/dL] (12/04/16 10:50 AM) RDW [11.5-14.5 %] 14.2 % (12/04/16 10:50 AM) Platelet [133-450 146 K/CMM K/CMM] (12/04/16 10:50 AM) MPV [7.4-10.4 fL] 9.5 fL (12/04/16 10:50 AM) Segs [45.0-75.0 %] 64.9 % (12/04/16 10:50 AM) Lymphocytes 20.9 % [20.0-40.0 %] (12/04/16 10:50 AM) Monocytes [2.0-12.0 5.6 % %] (12/04/16 10:50 AM) Eosinophils [0.0-4.0 8.1 % %] *HI* (12/04/16 10:50 AM) Basophils [0.0-1.0 0.5 % %] (12/04/16 10:50 AM) Segs-Bands # 6.3 K/CMM [1.5-8.1 K/CMM] (12/04/16 10:50 AM) Lymphocytes # 2.0 K/CMM [1.0-5.5 K/CMM] (12/04/16 10:50 AM) Monocytes # [0.0-0.8 0.5 K/CMM K/CMM] (12/04/16 10:50 AM) Eosinophils # 0.8 K/CMM [0.0-0.5 K/CMM] *HI* (12/04/16 10:50 AM) Microcyte [None 1+ Seen] *ABN* (12/04/16 10:50 AM) PT [12.0-14.7 12.5 seconds seconds] (12/04/16 10:50 AM) INR [0.85-1.17] 0.91 (12/04/16 10:50 AM) PTT [22.9-35.8 27.0 seconds seconds] (12/04/16 10:50 AM) Immunizations No data available for this section Procedures Procedure Date Related Diagnosis Body Site Colonoscopy Excision of left hemicolon Radiation therapy management Tonsillectomy Social History Social History Type Response Substance Abuse Use: None. Alcohol Never Smoking Status Never smoker; Exposure to Tobacco Smoke None; Cigarette Smoking Last 365 Days No; Reg Smoking Cessation Counseling No Assessment and Plan No data available for this section
--- OUTSIDE RECORDS SUMMARY | 2018-11-01 05:32 | XMS REPORT | Summary of Care ---
Author Organization Unknown Address Unknown Phone Unavailable Encounter HQ Chauncey(ZULEMA) [id number] Date(s): 02/24/15 - 02/24/15 [address] [place] [address]- Discharge Diagnosis: Benign paroxysmal positional vertigo Discharge Disposition: Home Physician Attending: Reanna Levin DO Vital Signs 1 2 3 Most recent to oldest [Reference Range]: 97.9 DegF (02/24/15 1:28 PM) 97.9 DegF (02/24/15 12:43 PM) 97.7 DegF (02/24/15 9:33 AM) Temperature Oral [96.4-99.1 DegF] 142/76 mmHg *HI* (02/24/15 1:28 PM) 136/71 mmHg (02/24/15 12:43 PM) Blood Pressure [90-140/60-90 mmHg] 140 mmHg (02/24/15 10:50 AM) Systolic Blood Pressure [90-140 mmHg] 77 mmHg (02/24/15 10:50 AM) Diastolic Blood Pressure [60-90 mmHg] 16 BRMIN (02/24/15 1:28 PM) 15 BRMIN (02/24/15 12:43 PM) 16 BRMIN (02/24/15 10:50 AM) Respiratory Rate [14-20 BRMIN] 68 bpm (02/24/15 1:28 PM) 72 bpm (02/24/15 12:43 PM) 73 bpm (02/24/15 10:50 AM) Peripheral Pulse Rate [60-100 bpm] 109.091 kg (02/24/15 9:33 AM) Weight Problem List Condition Effective Dates Status Health Status Informant Asthma(Confirmed) Active Benign Active hypertension(Confirm ed) Cancer of Resolved prostate(Confirmed) Chronic anemia1 02/03/13 Active Inflammatory polyps Active of colon(Confirmed)2 Malignant tumor of 02/03/13 Active sigmoid colon3 [place] - Myocardial < 09/24/87 Resolved infarction(Confirmed )4 [...] Substance Reaction Severity Status NKDA Active Medications Antivert 50 mg, 2 tab, Route: PO, Drug form: TAB, ONCE, Dosing Weight 109.091, kg, Priori ty: STAT, Start date: 02/24/15 10:27:00, Stop date: 02/24/15 10:27:00 Notes: (Same as: Antivert) Start Date: 02/24/15 Stop Date: 02/24/15 Status: Completed Antivert 25 mg oral tablet 25 mg=1 tab, PO, TID, PRN Dizziness, X 10 day, # 30 tab, 0 Refill(s) Start Date: 02/24/15 Stop Date: 03/06/15 Status: Ordered diphenhydrAMINE 25 mg, 0.5 mL, Route: IVP, Drug form: INJ, ONCE, Dosing Weight 109.091, kg, Prio rity: STAT, Start date: 02/24/15 10:27:00, Stop date: 02/24/15 10:27:00 Notes: (Same as: Benadryl) Start Date: 02/24/15 Stop Date: 02/24/15 Status: Completed metoclopramide 10 mg, 2 mL, Route: IVP, Drug form: INJ, ONCE, Dosing Weight 109.091, kg, Priori ty: STAT, Start date: 02/24/15 10:27:00, Stop date: 02/24/15 10:27:00 Notes: (Same as: Reglan) Start Date: 02/24/15 Stop Date: 02/24/15 Status: Completed Results ELECTROLYTES Most recent to 1 oldest [Reference Range]: Sodium Lvl [135-145 138 mEq/L mEq/L] (02/24/15 10:29 AM) Potassium Lvl 3.5 mEq/L [3.5-5.1 mEq/L] (02/24/15 10:29 AM) Chloride Lvl [95-109 101 mEq/L mEq/L] (02/24/15 10:29 AM) CO2 [24-32 mEq/L] 32 mEq/L (02/24/15 10:29 AM) AGAP [10.0-20.0 8.5 mEq/L mEq/L] *LOW* (02/24/15 10:29 AM) CHEM PANEL Most recent to 1 oldest [Reference Range]: Creatinine Lvl 2.1 mg/dL [0.5-1.4 mg/dL] *HI* (02/24/15 10:29 AM) eGFR 34 mL/min/1.73m2 1 *NA* (02/24/15 10:29 AM) BUN [7-22 mg/dL] 32 mg/dL *HI* (02/24/15 10:29 AM) B/C Ratio [6-25] 15 (02/24/15 10:29 AM) Glucose Lvl [70-99 122 mg/dL 2 mg/dL] *HI* (02/24/15 10:29 AM) Total Protein 7.6 g/dL [6.4-8.4 g/dL] (02/24/15 10:29 AM) Albumin Lvl [3.5-5.0 3.5 g/dL g/dL] (02/24/15 10:29 AM) Globulin [2.0-4.0 4.1 g/dL g/dL] *HI* (02/24/15 10:29 AM) A/G Ratio [0.7-1.6] 0.9 (02/24/15 10:29 AM) Calcium Lvl 9.0 mg/dL [8.5-10.5 mg/dL] (02/24/15 10:29 AM) ALT [0-65 unit/L] 18 unit/L (02/24/15 10:29 AM) AST [0-37 unit/L] 9 unit/L (02/24/15 10:29 AM) Alk Phos [39-136 68 unit/L unit/L] (02/24/15 10:29 AM) Bili Total [0.2-1.3 0.5 mg/dL mg/dL] (02/24/15 10:29 AM) 1Result Comment: The eGFR is calculated [...] be mul tiplied by the estimated BMI. 2Interpretive Data: Adult reference range values reflect the clinical guidelines of the [place] [employer]. CARDIAC ENZYMES Most recent to 1 oldest [Reference Range]: Total CK [12-191 83 unit/L unit/L] (02/24/15 10:29 AM) CK MB [0.5-3.6 0.7 ng/mL ng/mL] (02/24/15 10:29 AM) CK MB Index 0.8 [0.0-2.5] (02/24/15 10:29 AM) Troponin-I <0.02 ng/mL [0.00-0.40 ng/mL] (02/24/15 10:29 AM) HEMATOLOGY Most recent to 1 oldest [Reference Range]: WBC [3.7-10.4 K/CMM] 6.3 K/CMM (02/24/15 10:29 AM) RBC [4.70-6.10 5.15 M/CMM M/CMM] (02/24/15 10:29 AM) Hgb [14.0-18.0 g/dL] 12.5 g/dL *LOW* (02/24/15 10:29 AM) Hct [42.0-54.0 %] 39.1 % *LOW* (02/24/15 10:29 AM) MCV [80.0-94.0 fL] 75.8 fL *LOW* (02/24/15 10:29 AM) MCH [27.0-31.0 pg] 24.3 pg *LOW* (02/24/15 10:29 AM) MCHC [32.0-36.0 32.1 g/dL g/dL] (02/24/15 10:29 AM) RDW [11.5-14.5 %] 14.7 % *HI* (02/24/15 10:29 AM) Platelet [133-450 160 K/CMM K/CMM] (02/24/15 10:29 AM) MPV [7.4-10.4 fL] 9.3 fL (02/24/15 10:29 AM) Segs [45.0-75.0 %] 64.4 % (02/24/15 10:29 AM) Lymphocytes 21.8 % [20.0-40.0 %] (02/24/15 10:29 AM) Monocytes [2.0-12.0 8.4 % %] (02/24/15 10:29 AM) Eosinophils [0.0-4.0 4.6 % %] *HI* (02/24/15 10:29 AM) Basophils [0.0-1.0 0.8 % %] (02/24/15 10:29 AM) Segs-Bands # 4.1 K/CMM [1.5-8.1 K/CMM] (02/24/15 10:29 AM) Lymphocytes # 1.4 K/CMM [1.0-5.5 K/CMM] (02/24/15 10:29 AM) Monocytes # [0.0-0.8 0.5 K/CMM K/CMM] (02/24/15 10:29 AM) Eosinophils # 0.3 K/CMM [0.0-0.5 K/CMM] (02/24/15 10:29 AM) Microcyte [None 1+ Seen] *ABN* (02/24/15 10:29 AM) PT [12.0-14.7 13.1 seconds seconds] (02/24/15 10:29 AM) INR [0.85-1.17] 0.99 3 (02/24/15 10:29 AM) PTT [22.9-35.8 30.0 seconds 4 seconds] (02/24/15 10:29 AM) 3Interpretive Data: RECOMMENDED RANGES FOR PROTIME INR: 2.0-3.0 for most medical and surgical thromboembolic states. 2.5-3.5 for artificial heart valves and recurrent embolism. INR SHOULD BE USED ONLY FOR PATIENTS ON STABLE ANTICOAGULANT THERAPY. 4Interpretive Data: Heparin Therapeutic Range: 57 - 92 Seconds Immunizations No data available for this section Procedures Procedure Date Related Diagnosis Body Site Colonoscopy Excision of left hemicolon Radiation therapy management Tonsillectomy Social History Social History Type Response Smoking Status Never smoker; Exposure to Tobacco Smoke None; Cigarette Smoking Last 365 Days No; Reg Smoking Cessation Counseling No Assessment and Plan No data available for this section
--- OUTSIDE RECORDS SUMMARY | 2018-11-01 05:32 | XMS REPORT | Summary of Care ---
Author Author [facility] Address Unknown Phone Unavailable Encounter HQ Chauncey(FIN) [id number] Date(s): 05/28/15 - 06/23/15 [facility] Discharge Disposition: Home Attending Physician: Aba Garcia MD Vital Signs No data available for this section Problem List Condition Effective Dates Status Health Status Informant Asthma(Confirmed) Active Benign Active hypertension(Confirm ed) Cancer of Resolved prostate(Confirmed) Chronic anemia1 02/03/13 Active Inflammatory polyps Active of colon(Confirmed)2 Malignant tumor of 02/03/13 Active sigmoid colon3 [place] - Myocardial < 09/24/87 Resolved infarction(Confirmed )4 [...] Substance Reaction Severity Status NKDA Active Medications No data available for this section Results No data available for this section Immunizations [...]
--- OUTSIDE RECORDS SUMMARY | 2018-11-01 05:32 | XMS REPORT | Summary of Care ---
Author Author [facility] Organization [facility] Address Unknown Phone Unavailable Encounter HQ Chauncey(FIN) [id number] Date(s): 01/28/16 - 01/28/16 [facility] [address] [place] [address]- Discharge Disposition: Home Attending Physician: Jared Beverly MD Referring Physician: Jared Beverly MD Vital Signs No data available for this section Problem List Condition Effective Dates Status Health Status Informant Asthma(Confirmed) Active Benign Active hypertension(Confirm ed) Cancer of Resolved prostate(Confirmed) Chronic anemia1 02/03/13 Active Inflammatory polyps Active of colon(Confirmed)2 Malignant tumor of 02/03/13 Active sigmoid colon3 [place] - Myocardial < 09/24/87 Resolved infarction(Confirmed )4 [...]
--- OUTSIDE RECORDS SUMMARY | 2018-11-01 05:32 | XMS REPORT | Summary of Care ---
Author Author [facility] Address Unknown Phone Unavailable Encounter HQ Chauncey(FIN) [id number] Date(s): 04/27/15 - 05/26/15 [facility] Discharge Disposition: Home Attending Physician: Aba Garcia MD Vital Signs No data available for this section Problem List Condition Effective Dates Status Health Status Informant Asthma(Confirmed) Active Benign Active hypertension(Confirm ed) Cancer of Resolved prostate(Confirmed) Chronic anemia1 02/03/13 Active Inflammatory polyps Active of colon(Confirmed)2 Malignant tumor of 02/03/13 Active sigmoid colon3 [place] - Myocardial < 09/24/87 Resolved infarction(Confirmed )4 [...]
--- OUTSIDE RECORDS SUMMARY | 2018-11-01 05:32 | XMS REPORT | Summary of Care ---
Author Organization Unknown Address Unknown Phone Unavailable Encounter HQ Encntr_ru(FIN) [id number] Date(s): 12/30/14 - 12/30/14 [facility] [address] [place] [address]- [phone] Discharge Disposition: Home Physician Attending: Jared Beverly MD Physician_Referring: Jared Beverly MD Vital Signs No data available for this section Problem List Condition Effective Dates Status Health Status Informant Asthma(Confirmed) Active Benign Active hypertension(Confirm ed) Cancer of Resolved prostate(Confirmed) Inflammatory polyps Active of colon(Confirmed)1 [place] - Myocardial < 09/24/87 Resolved infarction(Confirmed )2 [...]
--- OUTSIDE RECORDS SUMMARY | 2018-11-01 05:32 | XMS REPORT | Summary of Care ---
Author Organization Unknown Address Unknown Phone Unavailable Encounter HQ Alivia_ru(FIN) [id number] Date(s): 06/30/14 - 06/30/14 [facility] [address] [address] Discharge Disposition: Home Physician Attending: Claudy Couch MD Physician_Referring: Claudy Couch MD Reason for Visit DYSPNEA 786.09 Problem List Condition Effective Dates Status Health Status Informant Asthma(Confirmed) Active Benign Active hypertension(Confirm ed) Cancer of Resolved prostate(Confirmed) Inflammatory polyps Active of colon(Confirmed)1 [place] - Myocardial < 09/24/87 Resolved infarction(Confirmed )2 Right sided Resolved weakness(Confirmed)3 Sleep Active apnea(Confirmed) SOB - Shortness of Active breath(Confirmed) Stroke(Confirmed)4 Resolved 1Signmoid 2 Approx 3r/t stroke 4right leg affected. Allergies, Adverse Reactions, Alerts Substance Reaction Severity Status NKDA Active Medications No data available for this section Medications Administered During Your Visit No data available for this section Immunizations No data available for this section Social History Social History Type Response Smoking Status Never smoker, Exposure to Tobacco Smoke None, Cigarette Smoking Last 365 Days No, Reg Smoking Cessation Counseling No
--- OUTSIDE RECORDS SUMMARY | 2018-11-01 05:32 | XMS REPORT | Summary of Care ---
Author Author [facility] Organization [facility] Address Unknown Phone Unavailable Encounter HQ Chauncey(FIN) [id number] Date(s): 08/06/15 - 08/06/15 [facility] [address] [place] [address]- Discharge Disposition: Home Attending Physician: Jared Beverly MD Referring Physician: Jared Beverly MD Vital Signs No data available for this section Problem List Condition Effective Dates Status Health Status Informant Asthma(Confirmed) Active Benign Active hypertension(Confirm ed) Cancer of Resolved prostate(Confirmed) Chronic anemia1 02/03/13 Active Inflammatory polyps Active of colon(Confirmed)2 Malignant tumor of 02/03/13 Active sigmoid colon3 [place] - Myocardial < 09/24/87 Resolved infarction(Confirmed )4 [...]
--- OUTSIDE RECORDS SUMMARY | 2018-11-01 05:32 | XMS REPORT | Summary of Care ---
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 Discharge Disposition: Home or Self Care Attending Physician: Benjamín Farfan MD Vital Signs 1 2 3 Most recent to oldest [Reference Range]: 177.8 cm (12/24/16 6:02 AM) Height 98.1 DegF (12/24/16 8:19 AM) Temperature Oral [96.4-99.1 DegF] 123/96 mmHg (12/24/16 8:19 AM) 152/67 mmHg *HI* (12/24/16 7:30 AM) 144/75 mmHg *HI* (12/24/16 6:42 AM) Blood Pressure [90-140/60-90 mmHg] 20 BRMIN (12/24/16 8:19 AM) 24 BRMIN *HI* (12/24/16 7:30 AM) 18 BRMIN (12/24/16 6:43 AM) Respiratory Rate [14-20 BRMIN] 91 bpm (12/24/16 6:02 AM) Peripheral Pulse Rate [60-100 bpm] 110 kg (12/24/16 6:02 AM) Weight 34.8 m2 (12/24/16 6:02 AM) Body Mass Index Problem List Condition Effective Dates Status Health Status Informant Asthma(Confirmed) Active Benign Active hypertension(Confirm ed) Cancer of Resolved prostate(Confirmed) Chronic anemia1 02/03/13 Active Diabetes(Confirmed) Active Inflammatory polyps Active of colon(Confirmed)2 Malignant tumor of 02/03/13 Active sigmoid colon3 OR - Myocardial < 09/24/87 Resolved infarction(Confirmed )4 [...] 6:05:00 CDT, Stop date: 12/24/16 6:05:00 CDT Notes: (Same as: Hugh) Start Date: 12/24/16 Stop Date: 12/24/16 Status: Completed methylPREDNISolone SODium SUCCinate 125 mg, Route: IVP, ONCE, Dosing Weight 110.455, kg, Priority: STAT, Start date: 12/24/16 6:05:00 CDT, Stop date: 12/24/16 6:05:00 CDT Start Date: 12/24/16 Stop Date: 12/24/16 Status: Discontinued predniSONE 20 mg oral tablet 40 mg=2 tab, PO, Daily, Take 2 tablets for 40 mg dose, X 5 day, # 10 tab, 0 Refi ll(s) Start Date: 12/24/16 Stop Date: 12/29/16 Status: Ordered Saline Flush 0.9% 10 mL, Route: IVP, Drug Form: INJ, Dosing Weight 110.455, kg, PRN, PRN Line Flus h, Start date: 12/24/16 6:05:00 CDT, Duration: 30 day, Stop date: 01/23/17 6:04: 00 CDT Notes: (Same as: BD Posiflush) Start Date: 12/24/16 Stop Date: 12/24/16 Status: Discontinued Results ELECTROLYTES Most recent to 1 2 oldest [Reference Range]: Sodium Lvl [135-145 144 mEq/L mEq/L] (12/24/16 6:10 AM) Potassium Lvl 3.3 mEq/L [3.5-5.1 mEq/L] *LOW* (12/24/16 6:10 AM) Chloride Lvl [95-109 104 mEq/L mEq/L] (12/24/16 6:10 AM) CO2 [24-32 mEq/L] 29 mEq/L (12/24/16 6:10 AM) AGAP [10.0-20.0 14.3 mEq/L mEq/L] (12/24/16 6:10 AM) CHEM PANEL Most recent to 1 2 oldest [Reference Range]: Creatinine Lvl 1.71 mg/dL [0.50-1.40 mg/dL] *HI* (12/24/16 6:10 AM) eGFR 43 mL/min/1.73m2 1 *NA* (12/24/16 6:10 AM) BUN [7-22 mg/dL] 29 mg/dL *HI* (12/24/16 6:10 AM) Glucose Lvl [70-99 123 mg/dL mg/dL] *HI* (12/24/16 6:10 AM) Calcium Lvl 9.1 mg/dL [8.5-10.5 mg/dL] (12/24/16 6:10 AM) Lactic Acid Lvl 1.5 mMol/L 2.3 mMol/L [0.5-2.2 mMol/L] (12/24/16 6:43 AM) *HI* (12/24/16 6:10 AM) 1Result Comment: The eGFR is calculated [...] BMI. CARDIAC ENZYMES Most recent to 1 2 oldest [Reference Range]: Troponin-I <0.02 ng/mL [0.00-0.40 ng/mL] (12/24/16 6:10 AM) HEMATOLOGY Most recent to 1 2 oldest [Reference Range]: WBC [3.7-10.4 K/CMM] 9.2 K/CMM (12/24/16 6:10 AM) RBC [4.70-6.10 4.77 M/CMM M/CMM] (12/24/16 6:10 AM) Hgb [14.0-18.0 g/dL] 11.6 g/dL *LOW* (12/24/16 6:10 AM) Hct [42.0-54.0 %] 36.2 % *LOW* (12/24/16 6:10 AM) MCV [80.0-94.0 fL] 75.9 fL *LOW* (12/24/16 6:10 AM) MCH [27.0-31.0 pg] 24.4 pg *LOW* (12/24/16 6:10 AM) MCHC [32.0-36.0 32.2 g/dL g/dL] (12/24/16 6:10 AM) RDW [11.5-14.5 %] 14.5 % (12/24/16 6:10 AM) Platelet [133-450 157 K/CMM K/CMM] (12/24/16 6:10 AM) MPV [7.4-10.4 fL] 9.3 fL (12/24/16 6:10 AM) Segs [45.0-75.0 %] 57.4 % (12/24/16 6:10 AM) Lymphocytes 29.4 % [20.0-40.0 %] (12/24/16 6:10 AM) Monocytes [2.0-12.0 7.4 % %] (12/24/16 6:10 AM) Eosinophils [0.0-4.0 5.2 % %] *HI* (12/24/16 6:10 AM) Basophils [0.0-1.0 0.6 % %] (12/24/16 6:10 AM) Segs-Bands # 5.3 K/CMM [1.5-8.1 K/CMM] (12/24/16 6:10 AM) Lymphocytes # 2.7 K/CMM [1.0-5.5 K/CMM] (12/24/16 6:10 AM) Monocytes # [0.0-0.8 0.7 K/CMM K/CMM] (12/24/16 6:10 AM) Eosinophils # 0.5 K/CMM [0.0-0.5 K/CMM] (12/24/16 6:10 AM) Basophils # [0.0-0.2 0.1 K/CMM K/CMM] (12/24/16 6:10 AM) Microcyte [None 1+ Seen] *ABN* (12/24/16 6:10 AM) Immunizations No data available for this [...]
--- NOTE | 2018-11-01 07:15 | NUR ---
SPIRITUAL CARE - Pre-Surgery Assessment: Pt in bed. Pt's and daughter at bedside. Pt reported supportive attention from family and friends. Intervention: I provided pastoral presence, hospitality, and sympathetic listening. I acquainted pt with availability of food manager while hospitalized. Outcome: Pt expressed appreciation for visit. No need for follow up indicated at this time. DALILA Portillolain Spiritual Care Department O: [phone] Pager: [phone] ([phone] number calling from)
[2018-11-01 12:05] VITALS: BP 175/99
--- NOTE | 2018-11-01 16:35 | Operative Report ---
DATE OF PROCEDURE: November 01, 2018 PREOPERATIVE DIAGNOSIS: Prostate cancer needing intravenous access for chemotherapy. POSTOPERATIVE DIAGNOSIS: Prostate cancer needing intravenous access for chemotherapy. OPERATION PERFORMED: Placement of left subclavian venous access port under C-arm guidance. ANESTHESIA: General. COMPLICATIONS: None. ESTIMATED BLOOD LOSS: Minimal. DESCRIPTION OF PROCEDURE: With the patient lying in bed in the supine position under good general endotracheal anesthesia, the abdomen, chest and neck were prepped with Betadine solution and draped in the usual manner. Standard left subclavian mini-puncture was performed without any difficulty, and a guidewire was advanced into central venous position. Using the C-arm, the left lung was found to be fully expanded. A guidewire was found to be at the level of the superior vena cave. The patient had a rather redundant superior vena cava. In order to make sure that we were in some kind of a side branch, we went ahead then and placed a triple lumen catheter over the guidewire, and injected some dye intravenously. We made absolutely sure that we were in the superior vena cava at that point. The wire was then advanced all the way down into the interior vena cava. After this was done, a pocket was then created in the left anterior chest to accept the reservoir. The reservoir was then placed and anchored to the chest wall with interrupted sutures of 2-0 silk. The catheter was threaded through the subclavian position and cut to the appropriate length. The peel-away sheath was then placed over the guidewire. The catheter was then threaded through the peel-away sheath without any difficulty. The peel-away sheath was removed. There was good blood return. The catheter was fully heparinized. Using the C-arm, the tip of the catheter was confirmed to be at the level of the superior vena cava. The left lung was fully expanded. The wound was then closed in layers. The subcutaneous tissue was approximated with 3-0 and 4-0 Vicryl. The skin was closed with subcuticular 5-0 Vicryl. Benzoin and Steri-Strips was applied. A dressing was placed. The sponge, lap and needle count was correct. The patient tolerated the procedure well and returned to the recovery room in stable condition. Job#: [id number]
== END | disposition home or self-care (01) ==
LOC: OR 05:25
PROVIDERS: ATTEND Surgery
DX: C61 Malignant neoplasm of prostate (principal); Z01.810 Encounter for preprocedural cardiovascular examination; Z01.812 Encounter for preprocedural laboratory examination; Z01.811 Encounter for preprocedural respiratory examination
CPT/HCPCS: 36415 ×2; 36561; 71046; 77001; 80053; 82948; 85025; 93005; C1751; J1100; J1644; J2001; J2405; J2704; J7040; Q9967

== ENCOUNTER 2020-11-26 15:31 | Inpatient (IN) | payer MEDICARE ==
[~2020-11-26] VITALS: Ht 172.7 cm; Wt 99.3 kg
[~2020-11-26 15:31] MED LIST changes: -BUPIVACAINE 0.25% 30ML SDV INJ ONE; -BUPIVACAINE 0.5%/EPI 30 ML SDV INJ ONE; -DEXAMETHASONE SOD PHOS INJ 4 MG/ML VIAL ONE; -EPHEDRINE SULFATE INJ 50 MG/10 ML SYR ONE; -FENTANYL CITRATE/PF 100MCG/2 ML INJ ONE; -HEPARIN SOD (PORCINE) 5,000 UNIT/ML VIAL ONE; -IOPAMIDOL 610MG/1ML 300 MG/ML VIAL IV ONE; -LABETALOL HCL 20 MG/4 ML SYRINGE IV ONE; -LIDOCAINE HCL 1% LOCAL INJ 20 ML VIAL ONE; -LIDOCAINE HCL 2% LOCAL INJ 5 ML SDV VIAL INJ ONE; -ONDANSETRON HCL INJ 2MG/ML 2ML 2 MG/ML VIAL ONE; -PROPOFOL IV EMULSION 10 MG/ML 20 ML VIAL ONE; -SEVOFLURANE INHAL SOLN 250 ML PEN BTL ONE; -SODIUM CHLORIDE 0.9% 500ML 500 ML ONE
[2020-11-26] MEDS ORDERED: SODIUM CHLORIDE 0.9% 1000ML 1,000 ML IV STA (15:56)
[2020-11-26 16:02] LABS: BASOPHILS % 0.7 % (0.0-1.0); EOSINOPHILS # (AUTO) 0.4 (0.0-0.4); EOSINOPHILS % 6.1 % (0.0-6.0); HEMATOCRIT 36.4 % (38.2-49.6); HEMOGLOBIN 11.4 g/dL (14.0-18.0); LYMPHOCYTES # (AUTO) 1.3 (1.0-3.2); LYMPHOCYTES % 21.8 % (18.0-39.1); MEAN CORPUSCULAR HEMOGLOBIN 23.8 pg (28-32); MEAN CORPUSCULAR HGB CONC 31.3 g/dL (31-35); MONOCYTES # (AUTO) 0.5 (0.2-0.8); MONOCYTES % 8.5 % (4.4-11.3); NEUTROPHILS # (AUTO) 3.8 (2.1-6.9); NEUTROPHILS % 62.4 % (38.7-80.0); PLATELET COUNT 183 x10e3/uL (140-360); RED BLOOD COUNT 4.79 x10e6/uL (4.3-5.7); RED CELL DISTRIBUTION WIDTH 14.1 % (11.7-14.4)
[2020-11-26 16:28] LABS: ALBUMIN 3.5 g/dL (3.5-5.0); ANION GAP 19.4 mmol/L (8-16); CALCIUM 9.1 mg/dL (8.4-10.2); CREATININE, SERUM 1.99 mg/dL (0.72-1.25); POTASSIUM 4.4 mmol/L (3.5-5.1)
[2020-11-26 16:35] LABS: CREATINE KINASE MB 0.2 ng/mL (0-5.0)
[2020-11-26 18:20] LABS: CLARITY,URINE SL CLOUDY (CLEAR); COLOR,URINE YELLOW (YELLOW); LEUKOCYTE ESTERASE ,URINE NEGATIVE (NEGATIVE); NITRITE,URINE NEGATIVE (NEGATIVE); PROTEIN,URINE DIPSTICK NEGATIVE (NEGATIVE)
[2020-11-26 18:21] LABS: KETONES,URINE NEGATIVE (NEGATIVE); URINE UROBILINOGEN 0.2 mg/dL (0.2 - 1)
[2020-11-26 18:35] LABS: BACTERIA,URINE RARE /HPF
[2020-11-26 21:59] VITALS: BP 168/79
[2020-11-26 22:02] VITALS: BP 168/79
[2020-11-26 22:30] VITALS: BP 168/79
[2020-11-27] VITALS (11 sets, daily range): BP systolic 74–198; BP diastolic 35–97
[2020-11-27 06:42] LABS: BASOPHILS % 0.7 % (0.0-1.0); EOSINOPHILS # (AUTO) 0.5 (0.0-0.4); EOSINOPHILS % 9.2 % (0.0-6.0); HEMATOCRIT 33.4 % (38.2-49.6); HEMOGLOBIN 10.7 g/dL (14.0-18.0); LYMPHOCYTES # (AUTO) 1.3 (1.0-3.2); LYMPHOCYTES % 22.6 % (18.0-39.1); MEAN CORPUSCULAR HEMOGLOBIN 24.3 pg (28-32); MEAN CORPUSCULAR VOLUME 75.9 fL (81-99); MONOCYTES # (AUTO) 0.6 (0.2-0.8); MONOCYTES % 10.5 % (4.4-11.3); NEUTROPHILS # (AUTO) 3.1 (2.1-6.9); NEUTROPHILS % 56.6 % (38.7-80.0); PLATELET COUNT 152 x10e3/uL (140-360); RED CELL DISTRIBUTION WIDTH 13.9 % (11.7-14.4)
[2020-11-27 07:02] LABS: ALBUMIN 2.9 g/dL (3.5-5.0); ALBUMIN/GLOBULIN RATIO 0.8 (0.8-2.0); ANION GAP 14.7 mmol/L (8-16); CALCIUM 8.9 mg/dL (8.4-10.2); CREATININE, SERUM 1.53 mg/dL (0.72-1.25); POTASSIUM 3.7 mmol/L (3.5-5.1)
[2020-11-27] MEDS ORDERED: TIOTROPIUM 18 MCG INH POWDER INH SCH (12:00)
[2020-11-27] MEDS ORDERED: ALBUTEROL SULFATE HFA 8GM INHALATION AEROSOL INH SCH (12:00)
[2020-11-27] MEDS ORDERED: DEXTROSE 50% SYRINGE 50 ML IV PRN (12:15)
[2020-11-27 13:03] LABS: FREE T4 (FREE THYROXINE) 0.92 ng/dL (0.8-1.8); THYROID STIMULATING HORMONE 1.362 uIU/mL (0.350-4.940)
[2020-11-27] MEDS: LOSARTAN POTASSIUM 25 MG TAB PO SCH (14:31)
[2020-11-27] MEDS: CLOPIDOGREL BISULFATE 75 MG TAB PO SCH (14:32)
[2020-11-27] MEDS: INSULIN REGULAR, HUMAN 100 UNIT/1 ML 3ML VIAL SQ SCH ×2 (16:30→20:28)
[2020-11-27] MEDS: MONTELUKAST SODIUM 10 MG TAB PO SCH (17:05)
[2020-11-27] MEDS: HYDRALAZINE HCL 20 MG/ML VIAL IV PRN (20:32)
[2020-11-28] VITALS (12 sets, daily range): BP systolic 72–160; BP diastolic 35–82
[2020-11-28] MEDS: INSULIN REGULAR, HUMAN 100 UNIT/1 ML 3ML VIAL SQ SCH ×4 (07:30→20:13)
[2020-11-28] MEDS: LOSARTAN POTASSIUM 25 MG TAB PO SCH (08:47)
[2020-11-28] MEDS: PANTOPRAZOLE SOD 40 MG TABEC PO SCH (08:47)
[2020-11-28] MEDS: CLOPIDOGREL BISULFATE 75 MG TAB PO SCH (08:47)
[2020-11-28] MEDS: TAMSULOSIN HCL 0.4 MG CAP PO SCH (08:47)
[2020-11-28] MEDS: PREDNISONE 10 MG TAB PO PRN (08:48)
[2020-11-28] MEDS ORDERED: LOSARTAN POTASSIUM 25 MG TAB PO SCH (09:00)
[2020-11-28] MEDS: MONTELUKAST SODIUM 10 MG TAB PO SCH (17:04)
[2020-11-29] VITALS (8 sets, daily range): BP systolic 57–159; BP diastolic 26–82
[2020-11-29 06:14] LABS: ANION GAP 12.6 mmol/L (8-16); BLOOD UREA NITROGEN 25 mg/dL (7-26); BUN/CREATININE RATIO 19 (6-25); CALCIUM 8.5 mg/dL (8.4-10.2); CARBON DIOXIDE 25 mmol/L (22-29); CHLORIDE 107 mmol/L (98-107); CREATININE, SERUM 1.29 mg/dL (0.72-1.25); EST GLOMERULAR FILTRATION RATE > 60 ML/MIN (60-); GLUCOSE 103 mg/dL (74-118); POTASSIUM 3.6 mmol/L (3.5-5.1); SODIUM 141 mmol/L (136-145)
[2020-11-29] MEDS: INSULIN REGULAR, HUMAN 100 UNIT/1 ML 3ML VIAL SQ SCH ×4 (07:30→21:00)
[2020-11-29] MEDS: PREDNISONE 10 MG TAB PO PRN (08:44)
[2020-11-29] MEDS: CLOPIDOGREL BISULFATE 75 MG TAB PO SCH (08:45)
[2020-11-29] MEDS: TAMSULOSIN HCL 0.4 MG CAP PO SCH (08:45)
[2020-11-29] MEDS: PANTOPRAZOLE SOD 40 MG TABEC PO SCH (09:47)
[2020-11-29] MEDS: LOSARTAN POTASSIUM 25 MG TAB PO SCH (09:47)
[2020-11-29] MEDS ORDERED: ASPIRIN 81 MG ENTERIC COATED PO ONE (15:15)
[2020-11-29] MEDS: MONTELUKAST SODIUM 10 MG TAB PO SCH (18:15)
[2020-11-29] MEDS: ATORVASTATIN 40 MG TAB PO SCH (21:05)
[2020-11-30] VITALS (10 sets, daily range): BP systolic 84–155; BP diastolic 49–88
[2020-11-30] MEDS: INSULIN REGULAR, HUMAN 100 UNIT/1 ML 3ML VIAL SQ SCH ×4 (07:30→21:00)
[2020-11-30] MEDS: ASPIRIN 81 MG ENTERIC COATED PO SCH (09:26)
[2020-11-30] MEDS: TAMSULOSIN HCL 0.4 MG CAP PO SCH (09:27)
[2020-11-30] MEDS: PANTOPRAZOLE SOD 40 MG TABEC PO SCH (09:27)
[2020-11-30] MEDS: CLOPIDOGREL BISULFATE 75 MG TAB PO SCH (09:27)
[2020-11-30] MEDS: LOSARTAN POTASSIUM 25 MG TAB PO SCH (09:27)
[2020-11-30] MEDS: PREDNISONE 10 MG TAB PO PRN (09:32)
[2020-11-30 10:43] LABS: ANION GAP 13.6 mmol/L (8-16); CALCIUM 8.6 mg/dL (8.4-10.2); CREATININE, SERUM 1.41 mg/dL (0.72-1.25); POTASSIUM 3.6 mmol/L (3.5-5.1)
[2020-11-30] MEDS: MONTELUKAST SODIUM 10 MG TAB PO SCH (17:35)
[2020-11-30] MEDS: ATORVASTATIN 40 MG TAB PO SCH (21:31)
[2020-12-01] VITALS (8 sets, daily range): BP systolic 105–155; BP diastolic 66–79
[2020-12-01] MEDS: INSULIN REGULAR, HUMAN 100 UNIT/1 ML 3ML VIAL SQ SCH ×3 (07:30→16:09)
[2020-12-01] MEDS: LOSARTAN POTASSIUM 25 MG TAB PO SCH (08:42)
[2020-12-01] MEDS: PANTOPRAZOLE SOD 40 MG TABEC PO SCH (08:42)
[2020-12-01] MEDS: CLOPIDOGREL BISULFATE 75 MG TAB PO SCH (08:42)
[2020-12-01] MEDS: ASPIRIN 81 MG ENTERIC COATED PO SCH (08:42)
[2020-12-01] MEDS: TAMSULOSIN HCL 0.4 MG CAP PO SCH (08:42)
[2020-12-01] MEDS: PREDNISONE 10 MG TAB PO PRN (08:45)
[2020-12-01] MEDS: MONTELUKAST SODIUM 10 MG TAB PO SCH (17:39)
[2020-12-01] MEDS: ATORVASTATIN 40 MG TAB PO SCH (21:00)
[2020-12-02] VITALS (9 sets, daily range): BP systolic 79–160; BP diastolic 47–80
[2020-12-02] MEDS: INSULIN REGULAR, HUMAN 100 UNIT/1 ML 3ML VIAL SQ SCH ×5 (04:13→19:52)
[2020-12-02] MEDS: CLOPIDOGREL BISULFATE 75 MG TAB PO SCH (08:25)
[2020-12-02] MEDS: ASPIRIN 81 MG ENTERIC COATED PO SCH (08:25)
[2020-12-02] MEDS: TAMSULOSIN HCL 0.4 MG CAP PO SCH (08:25)
[2020-12-02] MEDS: PREDNISONE 10 MG TAB PO PRN (08:25)
[2020-12-02] MEDS: PANTOPRAZOLE SOD 40 MG TABEC PO SCH (08:25)
[2020-12-02] MEDS: LOSARTAN POTASSIUM 25 MG TAB PO SCH (08:25)
[2020-12-02] MEDS: MONTELUKAST SODIUM 10 MG TAB PO SCH (17:24)
[2020-12-02] MEDS: ATORVASTATIN 40 MG TAB PO SCH (21:00)
[2020-12-03] VITALS (8 sets, daily range): BP systolic 122–175; BP diastolic 63–89
[2020-12-03] MEDS: INSULIN REGULAR, HUMAN 100 UNIT/1 ML 3ML VIAL SQ SCH ×4 (07:30→20:53)
[2020-12-03] MEDS: CLOPIDOGREL BISULFATE 75 MG TAB PO SCH (09:08)
[2020-12-03] MEDS: PANTOPRAZOLE SOD 40 MG TABEC PO SCH (09:08)
[2020-12-03] MEDS: TAMSULOSIN HCL 0.4 MG CAP PO SCH (09:08)
[2020-12-03] MEDS: ASPIRIN 81 MG ENTERIC COATED PO SCH (09:08)
[2020-12-03] MEDS: PREDNISONE 10 MG TAB PO PRN (09:11)
[2020-12-03] MEDS: LOSARTAN POTASSIUM 25 MG TAB PO SCH (11:51)
[2020-12-03] MEDS: MONTELUKAST SODIUM 10 MG TAB PO SCH (18:00)
[2020-12-03] MEDS ORDERED: ASPIRIN EC81 MG PO (19:52)
[2020-12-03] MEDS: ATORVASTATIN 40 MG TAB PO SCH (20:53)
[2020-12-04] VITALS (8 sets, daily range): BP systolic 122–172; BP diastolic 61–92
[2020-12-04] MEDS: INSULIN REGULAR, HUMAN 100 UNIT/1 ML 3ML VIAL SQ SCH ×4 (07:10→20:56)
[2020-12-04] MEDS: ASPIRIN 81 MG ENTERIC COATED PO SCH (08:33)
[2020-12-04] MEDS: CLOPIDOGREL BISULFATE 75 MG TAB PO SCH (08:34)
[2020-12-04] MEDS: TAMSULOSIN HCL 0.4 MG CAP PO SCH (08:34)
[2020-12-04] MEDS: PREDNISONE 10 MG TAB PO PRN (08:34)
[2020-12-04] MEDS: LOSARTAN POTASSIUM 25 MG TAB PO SCH (08:34)
[2020-12-04] MEDS: PANTOPRAZOLE SOD 40 MG TABEC PO SCH (08:34)
[2020-12-04] MEDS: MONTELUKAST SODIUM 10 MG TAB PO SCH (17:03)
[2020-12-04] MEDS: ATORVASTATIN 40 MG TAB PO SCH (20:54)
[2020-12-05] VITALS (9 sets, daily range): BP systolic 124–180; BP diastolic 60–92
[2020-12-05] MEDS: INSULIN REGULAR, HUMAN 100 UNIT/1 ML 3ML VIAL SQ SCH ×4 (07:30→20:55)
[2020-12-05] MEDS: ASPIRIN 81 MG ENTERIC COATED PO SCH (08:30)
[2020-12-05] MEDS: LOSARTAN POTASSIUM 25 MG TAB PO SCH (08:31)
[2020-12-05] MEDS: TAMSULOSIN HCL 0.4 MG CAP PO SCH (08:31)
[2020-12-05] MEDS: PANTOPRAZOLE SOD 40 MG TABEC PO SCH (08:31)
[2020-12-05] MEDS: CLOPIDOGREL BISULFATE 75 MG TAB PO SCH (08:31)
[2020-12-05] MEDS: MONTELUKAST SODIUM 10 MG TAB PO SCH (16:56)
[2020-12-05] MEDS: HYDRALAZINE HCL 20 MG/ML VIAL IV PRN (16:56)
[2020-12-05] MEDS: ATORVASTATIN 40 MG TAB PO SCH (21:03)
[2020-12-06] VITALS (11 sets, daily range): BP systolic 89–168; BP diastolic 61–83
[2020-12-06] MEDS: INSULIN REGULAR, HUMAN 100 UNIT/1 ML 3ML VIAL SQ SCH ×4 (07:30→21:00)
[2020-12-06] MEDS: ASPIRIN 81 MG ENTERIC COATED PO SCH (09:34)
[2020-12-06] MEDS: PANTOPRAZOLE SOD 40 MG TABEC PO SCH (09:34)
[2020-12-06] MEDS: LOSARTAN POTASSIUM 25 MG TAB PO SCH (09:34)
[2020-12-06] MEDS: CLOPIDOGREL BISULFATE 75 MG TAB PO SCH (09:34)
[2020-12-06] MEDS: TAMSULOSIN HCL 0.4 MG CAP PO SCH (09:34)
[2020-12-06] MEDS: MONTELUKAST SODIUM 10 MG TAB PO SCH (17:20)
[2020-12-06] MEDS: ATORVASTATIN 40 MG TAB PO SCH (21:00)
== END 2020-12-06 23:28 | DRG 64 ==
LOC: ER 15:40 → ERHOLD 18:43 → MED/SURG3 21:47
PROVIDERS: ADMIT Internal Medicine; ATTEND Internal Medicine
DX: I63.432 Cerebral infarction due to embolism of left posterior cerebral artery (principal); N17.0 Acute kidney failure with tubular necrosis; C78.01 Secondary malignant neoplasm of right lung; C79.89 Secondary malignant neoplasm of other specified sites; C79.51 Secondary malignant neoplasm of bone; E86.9 Volume depletion, unspecified; E66.9 Obesity, unspecified; I49.3 Ventricular premature depolarization; Z20.822 Contact with and (suspected) exposure to COVID-19; C61 Malignant neoplasm of prostate; E78.5 Hyperlipidemia, unspecified; K21.9 Gastro-esophageal reflux disease without esophagitis; F41.9 Anxiety disorder, unspecified; I25.10 Atherosclerotic heart disease of native coronary artery without angina pectoris; I25.2 Old myocardial infarction; Z82.49 Family history of ischemic heart disease and other diseases of the circulatory system; Z82.5 Family history of asthma and other chronic lower respiratory diseases; Z86.73 Personal history of transient ischemic attack (TIA), and cerebral infarction without residual deficits; M48.02 Spinal stenosis, cervical region; D63.8 Anemia in other chronic diseases classified elsewhere; M19.012 Primary osteoarthritis, left shoulder; M19.011 Primary osteoarthritis, right shoulder; M75.102 Unspecified rotator cuff tear or rupture of left shoulder, not specified as traumatic; M75.101 Unspecified rotator cuff tear or rupture of right shoulder, not specified as traumatic; N18.31 Chronic kidney disease, stage 3a; E11.22 Type 2 diabetes mellitus with diabetic chronic kidney disease; I12.9 Hypertensive chronic kidney disease with stage 1 through stage 4 chronic kidney disease, or unspecified chronic kidney disease; E11.42 Type 2 diabetes mellitus with diabetic polyneuropathy; Z68.33 Body mass index [BMI] 33.0-33.9, adult; Z79.82 Long term (current) use of aspirin
CPT/HCPCS: 36415; 70450; 70551; 71250; 72141; 74176; 80048; 80053; 80061; 81001; 82550; 82553; 82948; 83036; 83690; 83880; 84152; 84439; 84443; 84484; 85025; 93005; 93306; 93880; 97139; 99251; 99284; J0360; J7030; J7512; U0002